=== PATIENT | female | born 1935 | race Caucasian/White ===

== ENCOUNTER 2023-09-24 11:17 | Outpatient (CLI) | payer MEDICARE, SELFPAY ==
--- NOTE | ~2023-09-24 | XR_ITS ---
XR knee LT min 4V DATE: 09/24/2023 11:55 INDICATION: Fall. Medial knee pain. TECHNIQUE: Dows and standing AP, PA and lateral views COMPARISON: None FINDINGS: Mild suprapatellar knee joint effusion. Very thin approximately 7 mm long linear calcification or ossification is noted at the superior pole of the patella along the axis of the quadriceps tendon. This may be tendon calcification or small cor tical avulsion fracture at the superior pole of the patella. Minimal periarticular spurring of the patella. Osteopenia. Chondrocalcinosis of the medial and lateral compartments. Mild loss of height of medial compartment j oint space. No radiopaque intra-articular loose body is evident. No fracture, dislocation, periosteal reaction or bone destruction is detected. IMPRESSION: Small suprapatellar knee joint effusion 7 mm thin linear calcification at the distal quadriceps tendon or small superior pole patellar cortic al avulsion fracture Osteopenia Chondrocalcinosis Reviewed, dictated and finalized at location B. IMPRESSION: Small suprapatellar knee joint effusion 7 mm thin linear calcification at the distal quadriceps tendon or small superio r pole patellar cortical avulsion fracture Osteopenia Chondrocalcinosis
== END 2023-09-24 11:18 ==
PROVIDERS: PCP Orthopaedic Surgery; Visit Provider Orthopaedic Surgery
DX: M25.462 Effusion, left knee (principal); M85.89 Other specified disorders of bone density and structure, multiple sites; M11.262 Other chondrocalcinosis, left knee; M25.862 Other specified joint disorders, left knee
CPT/HCPCS: 73564

== ENCOUNTER 2023-10-22 10:38 | Outpatient (CLI) | payer MEDICARE, SELFPAY ==
--- NOTE | 2023-10-22 10:49 | ECG_ITS ---
Test Date: 2023-10-22 11:08:41 Measurements Intervals [place] Rate: 58 P: -37 MT: 170 QRS: -20 QRSD: 97 T: 1 QT: 413 QTc: 407 Interpretive Statements SINUS BRADYCARDIA WARNING: DATA QUALITY MAY AFFECT INTERPRETATION ABNORMAL ECG Electronically Signed On 10-22-2023 15:15:54 CDT by Juan Bell M.D.
== END 2023-10-22 10:39 | disposition home or self-care (01) ==
PROVIDERS: PCP Family Medicine; Visit Provider Orthopaedic Surgery
DX: Z01.818 Encounter for other preprocedural examination (principal); I10 Essential (primary) hypertension; R94.31 Abnormal electrocardiogram [ECG] [EKG]
CPT/HCPCS: 93005

== ENCOUNTER 2023-10-27 00:40 | Day surgery (SDC) | payer MEDICARE, SELFPAY ==
--- NOTE | 2023-10-16 13:30 | PC.NURSE ---
Report to the Outpatient Waiting Room, entrance under the green pavilion located off [facility], at time _1:00 PM on date _10/27/23 . Planned Procedure Time: _3:00PM . Time changes happen often and if your time is changed the preop area will call you the afternoon before. - You and your visitor will be asked to self-screen and do not enter if you have any COVID symptoms. - A mask is optional within the hospital at this time. Patients may have clear liquids (water, carbonated beverages, clear teas, apple juice) until 3 hours prior to surgery ( 12 NOON) with a maximum of 20 ounces. - No food from midnight until time of surgery - Infants may have breast milk until 4 hours before surgery, infant formula 6 hours prior to surgery. - Children will be allowed to drink immediately following surgery. If applicable, please bring a bottle or sippy cup to assist with drinking. Juice, water, soda, and popsicles are readily available. For infants on formula, please bring formula the day of surgery. Pacifiers are allowed. Take the following medications with a SIP of water the morning of surgery: _AMLODIPINE,DULOXETINE,PREGABALIN DO NOT STOP ANY OF YOUR OTHER PRESCRIPTION MEDICATIONS PRIOR TO SURGERY ?EXCEPT THE FOLLOWING Medications to discontinue per physician ___ALL VITAMINS AND SUPPLEMENTS 3 DAYS PRE OP 10/23/23. HOLD MELOXICAM 7 DAYS PRE OP PER DR OSBORN.LAST DOSE 10/19/23 MAY TAKE TYLENOL IF NEEDED FOR PAIN Please no make-up, nail georgian, hairspray, perfume, deodorant, or body powder the day of surgery. No jewelry (including any body piercings) or valuables the day of surgery, leave them at home. Please take a shower or bath the night before, or the morning of, surgery with an antibacterial soap. Wear comfortable, loose fitting clothing. Children are encouraged to wear pajamas. - Jewelry must be removed prior to entering the operating room. Rings and piercings that are not removed may be cut off. - The hospital will not accept responsibility for valuables. - Please leave all valuables, including medications, at home the day of surgery. If you are going home after surgery, a licensed local intermodal truck driver must drive you home. - NO public transportation without another adult if you receive anesthesia. - We recommend that an adult stay with you for 24 hours following discharge. - We also recommend that you do not drive, make important decision, drink alcoholic beverages, or take any drugs that were not prescribed by your health care provider for at least 24 hours after your discharge time. Follow any additional instructions given to you from your surgeon. If you or anyone in your household have experienced Covid symptoms in the past week, please notify your surgeon or the nurse liaison at the phone number below for possible testing. Telephone instructions given to ___PATIENT and asked if any additional questions and then verbalized understanding. Patient advised to call surgeon office or pre surgery nurse liaison [phone] if any additional questions.
[2023-10-16 13:45] VITALS: BMI 26.1
[2023-10-27] VITALS (8 sets, daily range): BP systolic 108–131; BP diastolic 54–69; PULSE 67–78; RESP 12–18; TEMP 36.2–36.7; O2SAT 97–100
--- NOTE | 2023-10-27 08:56 | WPDHPUPDATE1 ---
History and Physical Update Update Date/Time: 10/27/23 08:56 History and Physical has been reviewed, including an updated exam of the patient. There are NO changes in the patient's condition. Risks, benefits, and alternatives have been discussed and questions answered. Patient agrees to proceed with procedure.
[2023-10-27] MEDS: KETOROLAC 15 MG/ML VIAL (*BKC) IV PUSH (13:23)
[2023-10-27] MEDS: ACETAMINOPHEN 500 MG TABLET 1000 MG PO (13:23)
--- NOTE | 2023-10-27 13:52 | WPDANESEPPF ---
Anes - Initial Pre Proc Eval Procedure: Operation Date: 10/27/23 15:00 Proposed Procedures p Left Knee Arthroscopy, Partial Medial and Lateral Meniscectomy - Maco Adames MD Date/Time: 10/27/23 13:52 Surgeon: Maco Adames MD Pre Op Diagnosis: left knee medial & lateral meniscus tear Patient Data Age: 88 Gender: F Height: 1.68 m Weight: 70.3 kg Last Vital Signs Temp 36.7 C 10/27/23 13:36 Pulse 67 10/27/23 13:36 Resp 16 10/27/23 13:36 BP 127/63 10/27/23 13:36 Pulse Ox 100 10/27/23 13:36 O2 Del Method Room Air 10/27/23 13:36 Allergies Allergy/AdvReac Type Severity Reaction Status Date / Time fesoterodine [From Toviaz] AdvReac Intermediate Blurry Verified 10/27/23 13:07 Vision sulfamethoxazole AdvReac Intermediate Nausea Verified 10/27/23 13:07 [From Bactrim] trimethoprim [From Bactrim] AdvReac Intermediate Nausea Verified 10/27/23 13:07 Home Medications Medication Instructions Recorded Confirmed Type amlodipine 5 mg tablet 5 mg PO DAILY 09/13/19 10/27/23 History calcium carb-vit U0-vfddolnnh-upvg 1 tablet PO DAILY 09/13/19 10/27/23 History 333 mg-200 unit-133 mg-5 mg tablet lisinopril 20 mg tablet 20 mg PO DAILY 09/13/19 10/27/23 History pantoprazole 40 mg tablet,delayed 40 mg PO PRN PRN Heartburn 09/13/19 10/27/23 History release acetaminophen 650 mg 650 mg PO Q8H 08/19/23 10/27/23 History tablet,extended release (Tylenol Arthritis Pain) alendronate 70 mg tablet 70 mg PO WEEKLY 08/19/23 10/27/23 History duloxetine 20 mg capsule,delayed 20 mg PO BID 08/19/23 10/27/23 History release meloxicam 7.5 mg tablet 7.5 mg PO DAILY 08/19/23 10/27/23 History pregabalin 150 mg capsule 150 mg PO BID 08/19/23 10/27/23 History ipratropium bromide 21 mcg (0.03 2 spray intranasal BID 08/29/23 10/27/23 History %) nasal spray cholecalciferol (vitamin D3) 50 50 mcg PO DAILY 10/16/23 10/27/23 History mcg (2,000 unit) tablet uhimjgud-ttzd-tcdb 8 mg-folic 400 1 tablet PO DAILY 10/16/23 10/27/23 History mcg-K 50 mcg-lutein 300 mcg tablet (Centrum Silver Women) hydrocodone 5 mg-acetaminophen 325 1 - 2 tablet PO Q4-6H PRN pain #30 10/27/23 Rx mg tablet tabs Patient hx anesthesia problems: none Family hx anesthesia problems: none Results Review: All pre-operative results and documents have been reviewed as part of the pre-operative evaluation. [facility] Past Medical History Medical History Acute idiopathic gout of right ankle Back complaints Cardiac murmur Chronic cough Current mild episode of major depressive disorder Diminished hearing Essential (primary) hypertension GERD (gastroesophageal reflux disease) Goiter, nontoxic, multinodular Hip bursitis Neoplasm of uncertain behavior of skin Neuropathy Osteoporosis Overactive bladder Postmenopausal Prediabetes Seborrheic keratosis Spinal stenosis Spinal stenosis of lumbar region with neurogenic claudication Trochanteric bursitis, left hip Vitamin D deficiency Family History Family History Sibling Cerebrovascular accident Mother Family history of kidney disease Family history of heart disease in male family member before age 55 Other Diabetes mellitus Hypertension Social History Social History Smoking status: Never smoker Alcohol intake: current Do You Feel Safe in your Home?: Yes Lack of Transportation: No Lack of Food: Never True Current Housing: I Have Housing Concerned About Future Housing: No Difficulty Paying Gas/Electric Bills: No Difficulty Paying for Meds: No Currently Unemployed: No Education: Decline to Answer Difficulty w/ Childcare or Family Care: No Living arrangements: with family Spiritual care concerns: No Anes - Eval Final PreProcedure Day of Procedure
[2023-10-27] MEDS: ceFAZolin 2 GM/D5W 50 ML 2 GM/50 ML BAG IVPB (13:58)
[2023-10-27] MEDS: BUPIVACAINE/EPINEPHRINE 0.5% 10 ML VIAL 20 ML INFILTRATE (14:14)
[2023-10-27] MEDS: LACTATED RINGERS 1,000 ML 30 ML IV CONT (14:50)
--- NOTE | 2023-10-27 15:09 | W.PM.PROC2 ---
Procedure Note - Detailed Date of Procedure 10/27/23 Pre-op Diagnosis Left knee medial & lateral meniscus tear Post-op Diagnosis Same Procedure Performed Arthroscopic partial medial and lateral meniscectomies, left knee. Surgeon Maco Adames MD Anesthesia General Findings Extensive tearing of the posterior horn medial meniscus. Subtotal meniscectomy. Woyn-ph-tijhcetw chondromalacia diffusely in the medial compartment. Mild at the patella. Lateral compartment with moderate tearing of the posterior and anterior horn. Good remaining meniscus. Articular cartilage largely normal in the lateral compartment. Overall the knee was in good condition given the patient age and the extent of the meniscus tear. Description of Procedure The patient was identified and the surgical site confirmed and signed in the preoperative holding area. Antibiotics were started per protocol, and the patient was brought to the operative room and transferred to the OR table. A general anesthetic was administered. Supine position with the operative lower extremity position in the leg miller after placement of a well padded tourniquet. The leg support was lowered and the contralateral limb was supported with a soft bolster. The knee was prepped and draped in the usual sterile fashion. A time-out was performed. The portal sites were marked and infiltrated with 0.5% Marcaine 20 mL. The limb was exsanguinated and the tourniquet inflated to 300 mL Hg. Standard inferolateral and inferomedial portals were established. Inflow was obtained with the saline pump. The camera was introduced. Diagnostic inspection of the joint was accomplished. The menisci were debrided with the arthroscopic shaver and punches until stable. The arthroscopic instruments were removed. The tourniquet released and wounds closed with subcutaneous 4-0 Monocryl absorbable suture. Steri strips and a sterile dressing were applied. A light elastic wrap was placed. The patient was extubated and brought to the recovery room in stable condition. Estimated Blood Loss 5 Tourniquet Time Total Tourniquet Time: 12 Drains No Complications No immediate complications Condition Stable Disposition PACU [facility] Billing Surgery - Charge Forward: Surgery Billing
[2023-10-27] MEDS: oxyCODONE HCL (*CRX) 5 MG TAB IR PO (15:44)
== END 2023-10-27 16:27 | disposition home or self-care (01) ==
PROVIDERS: PCP Family Medicine; Visit Provider Orthopaedic Surgery
PROC: (CPT 29870; principal; 2023-10-27 15:00)
DX: S83.242A Other tear of medial meniscus, current injury, left knee, initial encounter (principal); S83.282A Other tear of lateral meniscus, current injury, left knee, initial encounter; W10.9XXA Fall (on) (from) unspecified stairs and steps, initial encounter; I10 Essential (primary) hypertension; K21.9 Gastro-esophageal reflux disease without esophagitis; M81.0 Age-related osteoporosis without current pathological fracture; E55.9 Vitamin D deficiency, unspecified; F32.0 Major depressive disorder, single episode, mild
CPT/HCPCS: 29880; A9270; J0690; J1885; J2250; J2405; J2704; J3010; J7120

== ENCOUNTER 2024-04-14 10:42 | Outpatient (CLI) | payer MEDICARE, OTHER, SELFPAY ==
[2024-04-14 11:17] LABS: Hematocrit 39.4 % (37.0-47.0); Hemoglobin 12.4 g/dL (12.0-15.0)
[2024-04-14 12:01] LABS: Albumin Level 4.2 g/dL (3.5-5.1); Estimated Glomerular Filt Rate > 60; Glucose 98 mg/dL (65-110)
[2024-04-14 12:21] LABS: Hemoglobin A1C 5.5 % (<5.7)
== END 2024-04-14 10:43 | disposition home or self-care (01) ==
PROVIDERS: PCP Family Medicine; Visit Provider Orthopaedic Surgery
DX: E55.9 Vitamin D deficiency, unspecified (principal); R73.03 Prediabetes; L82.1 Other seborrheic keratosis
CPT/HCPCS: 36415; 82040; 82565; 82947; 83036; 85014; 85018

== ENCOUNTER 2024-06-02 09:46 | Outpatient (CLI) | payer MEDICARE, OTHER, SELFPAY ==
--- OUTSIDE RECORDS SUMMARY | 2024-06-02 02:01 | XMS_ITS | Clinical Summary ---
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
--- OUTSIDE RECORDS SUMMARY | 2024-06-02 02:01 | XMS_ITS | Encounter Summary ---
Author Organization [facility] [employer] Address 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
--- OUTSIDE RECORDS SUMMARY | 2024-06-02 02:01 | XMS_ITS ---
Author Organization [facility] Address [address] [place] [phone] Care Team Providers Care Improvement Coordinator Name Role Phone Mónica Coburn Primary Care Provider [phone] REASON FOR VISIT REfill-Controlled Medications Medication SIG (Take, Route, Fr equency, Duration) Notes Start Date End Date Status Pregabalin 150 MG 1 Oral at bed time; Duration: 90 days 05/17/2024 11/13/2024 Active Encounters Encounter Location Date Provider Diagnosis [address] [phone] 05/17/2024 Mónica Coburn Polyneuropathy, unspecified G62.9 Assessments Encounter Date Diagnosis (ICD Code) Assessment Notes Treat ment Notes Treatment Clinical Notes 05/17/2024 Polyneuropathy, unspecified (ICD-10 - G62.9) Plan Of Treatment Medication Medication Name Sig Start Date Stop Date Notes Pregabalin 150 MG 1 Oral at bed time; Duration: 90 days 11/13/2024 Next Appt Details Provider Name:Ingrid gurrola, 06/22/2024 10:15:00 AM, [address] [place] [address], [phone], [phone] Provider Name:Mónica Coburn , 09/16/2024 01:30:00 PM, [address] [place] [address], [phone], [phone] Progress Notes * Elizabeth VIEIRAOB:1935 (88 yo F)Acc No.[id number]:05/17/2024 Patient:?Leanna VIEIRA :1935???Age:88 Y???Sex:Female Phone: Address:[address] [place] [address], [place], [address] * Refills? Refill Pregabalin Capsule, 150 MG, Oral, 90 Capsule, 1, at bed time, 90 days, Refills=1 Subjective: * Chief Complaints: * ???REfill-Controlled * Medical History:? * Surgical History:? * Hospitalization/Major Diagno stic Procedure:? * Medications:? Objective: * Physical Examination:? Assessment: * Assessment: 1.?Polyneuropathy, unspecifi ed - G62.9??? Plan: * Treatment: * Procedure Codes:? Billing Information: * Visit Code:? * Procedure Codes:? * true * Date:? 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
--- OUTSIDE RECORDS SUMMARY | 2024-06-02 02:02 | XMS_ITS ---
Author Organization [facility] Address [address] [place] [address] Care Team Providers Care Medical Laboratory Assistant Name Role Phone Mónica Coburn Primary Care Provider [phone] REASON FOR VISIT Cryo on right ear x 2 Medications Medication SIG (Take, Route, Frequency, Duration) Notes Start Date End Date Status amLODIPine Besylate 5 MG 1 Oral every day; Duration: 02/06/2024 08/03/2024 Unknown Alendronate Sodium 70 MG 1 Oral once a week; Duration: 90 06/16/2023 06/09/2024 Unknown Tylenol 8 Hour Arthritis Pain 650 MG 2 Oral three times a day; Duration: 0 09/03/2022 Unknown Pregabalin 150 MG 1 Oral at bed time; Duration: 90 02/17/2024 05/16/2024 Active Mupirocin 2 % External two times a day; Duration: 0 03/17/2024 Unknown Diclofenac Sodium 50 MG 1 tablet as needed Orally Twice a day; Duration: 30 days As needed. STOP taking 7 days prior to upcoming procedure. 05/12/2024 Active Centrum Silver oral; Duration: 0 *Pick strength-form from [employer] for eRX* 10/27/2020 Unknown Vitamin D2 oral; Duration: 0 *Pick strength-form from [employer] for eRX* 12/24/2023 Unknown Metamucil oral; Duration: 0 *Pick strength-form from [employer] for eRX* 10/27/2020 Not-Taking DULoxetine HCl 20 MG 1 Oral every night at bedtime; Duration: 90 02/16/2024 08/13/2024 Active Lisinopril 20 MG 1/2 Oral every day; Duration: 90 days 12/19/2023 06/15/2024 Active Multivitamin oral; Duration: 0 *Pick strength-form from [facility] for eRX* 06/16/2023 Active busPIRone HCl 10 MG 0.5-1 Oral every 6-8 hours; Duration: 0 ,PRN Reason:for anxiety 10/20/2023 Not-Taking Vital Signs Temperature 97.0 degrees Fahrenheit 05/12/19 25 Blood pressure systolic 124 mm Hg 05/12/19 25 Blood pressure diastolic 68 mm Hg 025 Heart Rate 78 /min 05/12/2024 Height 64.00 in 05/12/2024 Weight 166 lbs 05/12/2024 BMI 28.49 kg/m2 05/12/2024 Oximetry 97 % 05/12/2024 Height-cm 162.56 cm 05/12/2024 Weight-kg 75.3 kg 05/12/2024 Encounters Encounter Location Date Provider Diagnosis [address] [address] 05/12/2024 [facility] 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 Do not break any blisters that may form as this will reduce infection risk. If blisters do break, apply topical antibiotic ointment until healed. Call the office with any questions or concerns. Right Ear Skin Spot - Possible precancerous skin spot on the right ear. - Perform cryotherapy (freezing) on the skin spot. Expect blistering and shedding of the spot within 5 to 7 days, followed by new skin growth. Knee Pain - Chronic knee pain, patient is worried about potential surgery. - Prescribe diclofenac (voltaren) for pain management as needed, with a 12-hour duration. Provide a printed medication list for patient review and confirmation. - Discussed the safety of diclofenac compared to regular ibuprofen, emphasizing its better tolerance on the stomach. - Advised the patient to use diclofenac on tough days when pain is more severe. Arthritis Pain - Chronic arthritis pain. - Continue taking duloxetine daily for arthritis pain management. - Emphasized the importance of daily intake for duloxetine to maintain its effectiveness for arthritis pain, anxiety, and depression. Blood Pressure Management - Blood pressure is well-controlled with current medication regimen. - Continue current blood pressure medications, lisinopril reduced to 10 mg as previously adjusted. - Reassured the patient about the effectiveness of the current blood pressure management plan, as evidenced by the stable reading of 124/68 mmHg. Plan Of Treatment Medication Medication Name Sig Start Date Stop Date Notes Diclofenac Sodium 50 MG 1 tablet as need ed Orally Twice a day; Duration: 30 days 05/12/2024 Treatment Notes Assessment Notes Other Cryotherapy instructions Patient was informed that some mild stinging is normal for 1-2 days. Do not break any blisters that may form as this will reduce infection risk. If blisters do break, apply topical antibiotic ointment until healed. Call the office with any questions or concerns. Right Ear Skin Spot - Possible precancerous skin spot on the right ear. - Perform cryotherapy (freezing) on the skin spot. Expect blistering and shedding of the spot within 5 to 7 days, followed by new skin growth. Knee Pain - Chronic knee pain, patient is worried about potential surgery. - Prescribe diclofenac (voltaren) for pain management as needed, with a 12-hour duration. Provide a printed medication list for patient review and confirmation. - Discussed the safety of diclofenac compared to regular ibuprofen, emphasizing its better tolerance on the stomach. - Advised the patient to use diclofenac on tough days when pain is more severe. Arthritis Pain - Chronic arthritis pain. - Continue taking duloxetine daily for arthritis pain management. - Emphasized the importance of daily intake for duloxetine to maintain its effectiveness for arthritis pain, anxiety, and depression. Blood Pressure Management - Blood pressure is well-controlled with current medication regimen. - Continue current blood pressure medications, lisinopril reduced to 10 mg as previously adjusted. - Reassured the patient about the effectiveness of the current blood pressure management plan, as evidenced by the stable reading of 124/68 mmHg. Next Appt Details Provider Name:Ingrid gurrola 06/22/2024 10:15:00 AM, [address] [facility], [place], [address], [phone] Provider Name:Mónica Coburn , 09/16/2024 01:30:00 PM, [address], [place], [address], [phone] History and Physical Notes * Examination Category Sub-Category Detail Notes General Examination General appearance: alert, p leasant, well-nourished and in no acute distress Ears: right ear externally with 3 mm scaly skin lesion, base with redness. Heart: regular rate and rhy thm without murmurs, gallops, clicks or rubs, S1 and S2 are normal and no S3 and S4 gallop Lungs: clear to auscultatio n bilaterally, with good air movement and no rales, rhonchi or wheezes Psych: alert and oriented x 3, cognitive function intact, maintains good eye contact, normal affect / mood, speech is clear and coherent Progress Notes * BABATUNDEHARDYElizabethOB:1935 (88 yo F)Acc No.[id number]:05/12/2024 Progress Note Patient:?Leanna Barnard Provider:?Mónica Coburn MD :[id number]???Age:88 Y???Sex:Female D ate:05/12/2024 Phone: Address:[address] [place], [place] [phone] Subjective: * Chief Complaints: * ???Cryo on right ear x 2 * HPI: ???HPI:?Patient is here for cryo of the right ear. Chief complaint Cryotherapy for a skin spot on the right ear and management of knee pain. - Undergoing cryotherapy for a skin spot on the right ear, possibly precancerous vs chondrodermatitis - Expressed concern and anxiety about upcoming knee surgery - Has experienced knee pain for a year, impacting daily activities and mood - Described feeling crabby and having a bad day due to pain and worry about surgery -Chronic joint pain, feels she needs something for pain. No longer taking meloxicam she was given from ortho some time ago. * Medications:?TakingPregabali n 150 MG Capsule 1 Oral at bed time , stop date 05/16/2024DULoxetine HCl 20 MG Capsule Delayed Release Particles 1 Oral every night at bedtime , stop date 08/13/2024Multivitamin oral , Notes to Pharmacist: *Pick strength-form from [facility] for eRX*Lisinopril 20 MG Tablet 1/2 Oral every day , stop date 06/15/2024Taking Pregabalin 150 MG Capsule 1 Oral at bed time , stop date 05/16/2024Taking DULoxetine HCl 20 MG Capsule Delayed Release Particles 1 Oral every night at bedtime , stop date 08/13/2024Taking Multivitamin oral , Notes to Pharmacist: *Pick strength-form from [facility] for eRX*Taking Lisinopril 20 MG Tablet 1/2 Oral every day , stop date 06/15/2024Not-TakingbusPIRone HCl 10 MG Tablet 0.5-1 Oral every 6-8 hours , Notes to Pharmacist: ,PRN Reason:for anxietyMetamucil oral , Notes to Pharmacist: *Pick strength-form from [facility] for eRX*Not-Taking busPIRone HCl 10 MG Tablet 0.5-1 Oral every 6-8 hours , Notes to Pharmacist: ,PRN Reason:for anxietyNot-Taking Metamucil oral , Notes to Pharmacist: *Pick strength-form from [facility] for eRX*DiscontinuedMeloxicam 7.5 MG Tablet 1 Oral every day Discontinued Meloxicam 7.5 MG Tablet 1 Oral every day UnknownVitamin D2 oral , Notes to Pharmacist: *Pick strength-form from [facility] for eRX*Centrum Silver oral , Notes to Pharmacist: *Pick strength-form from [facility] for eRX*Alendronate Sodium 70 MG Tablet 1 Oral once a week , stop date 06/09/2024mLODIPine Besylate 5 MG Tablet 1 Oral every day , stop date 08/03/2024Mupirocin 2 % Ointment External two times a day Tylenol 8 Hour Arthritis Pain 650 MG Tablet Extended Release 2 Oral three times a day Unknown Vitamin D2 oral , Notes to Pharmacist: *Pick strength-form from [facility] for eRX*Unknown Centrum Silver oral , Notes to Pharmacist: *Pick strength-form from [facility] for eRX*Unknown Alendronate Sodium 70 MG Tablet 1 Oral once a week , stop date 06/09/2024Unknown amLODIPine Besylate 5 MG Tablet 1 Oral every day , stop date 08/03/2024Unknown Mupirocin 2 % Ointment External two times a day Unknown Tylenol 8 Hour Arthritis Pain 650 MG Tablet Extended Release 2 Oral three times a day Objective: * Vitals:?BP:124/68mm Hg, HR:7 8/min, Temp:97.0F, Oxygen sat %:97%, Ht: 64.00 in, Wt:166lbs, Wt-k.3 kg, Ht-cm: 162.56 cm, BMI: 28.49 Index, Body Surface Area: 1.84. * Examination: ???General Examination: ?General appearance:?alert, pleasant, well-nourished and in no acute distress.?Ears:?right ear externally with 3 mm scaly skin lesion, base with redness..?Heart:?regular rate and rhythm without murmurs, gallops, clicks or rubs, S1 and S2 are normal and no S3 and S4 gallop.?Lungs:?clear to auscultation bilaterally, with good air movement and no rales, rhonchi or wheezes.?Psych:?alert and oriented x 3, cognitive function intact, maintains good eye contact, normal affect / mood, speech is clear and coherent.? 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 Plan: * Treatment: * Procedures:?Informed Consent was obtained before the procedure started Lesion type: Other Location of : right external ear Number of lesions: 1 The lesions were destroyed using cryotherapy with [employer]. 10 seconds Freeze and Thaw cycle performed. 3 rounds performed to each lesion. Anticipatory guidance was provided. Return precautions were given. Standard post procedure care was explained. The patient tolerated the procedure well without any complications. ? * Procedure Codes:?76335 DESTR UCT B9 LESION 1-14 Billing Information: * Visit Code:? 26708 OFFICE VISIT LOW. Modifiers: 25 * Procedure Codes:? 51824 DESTRUCT B9 LESION 1-14. * REHABILITATION Sign off status: Completed true * Provider:?Mónica Coburn MD Date:?05/12 Generated for Delvis dawn/Taylor/Claritza on:?06/02/2024 02:02 AM RN REHABILITATION
--- OUTSIDE RECORDS SUMMARY | 2024-06-02 02:02 | XMS_ITS | Encounter Summary ---
Author Organization [facility] Address 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
--- OUTSIDE RECORDS SUMMARY | 2024-06-02 02:02 | XMS_ITS | Encounter Summary ---
Author Organization [facility] Address 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
--- OUTSIDE RECORDS SUMMARY | 2024-06-02 02:02 | XMS_ITS ---
Author Organization [facility] Address [address] [place] [address] Care Team Providers Care Biometrics Technician Name Role Phone Mónica Coburn Primary Care Provider [phone] Allergies Allergen (clinical drug ingredient) Drug/Non Drug Allergy documented on EMR Reaction Allergy Type Onset Date Status sulfamethoxazole / trimethoprim Bactrim nausea Drug Allergy 12/07/2020 Active fesoterodine Toviaz blurry vision Drug Allergy 12/10/2021 Active REASON FOR VISIT preop knee surgery Medications Medication SIG (Take, Route, Frequency, Duration) Notes Start Date End Date Status Mupirocin 2 % External two times a day; Duration: 0 03/17/2024 Unknown amLODIPine Besylate 5 MG 1 Oral every day; Duration: 90 02/06/2024 08/03/2024 Unknown Lisinopril 20 MG 1 Oral every day; Duration: 90 12/19/2023 06/15/2024 Unknown Multivitamin oral; Duration: 0 *Pick strength-form from [employer] for eRX* 06/16/2023 Unknown Tylenol 8 Hour Arthritis Pain 650 MG 2 Oral three times a day; Duration: 0 09/03/2022 Unknown DULoxetine HCl 20 MG 1 Oral every night at bedtime; Duration: 90 02/16/2024 08/13/2024 Unknown Metamucil oral; Duration: 0 *Pick strength-form from [employer] for eRX* 10/27/2020 Not-Taking Alendronate Sodium 70 MG 1 Oral once a week; Duration: 90 06/16/2023 06/09/2024 Unknown Meloxicam 7.5 MG 1 Oral every day; Duration: 0 06/16/2023 Unknown Pregabalin 150 MG 1 Oral at bed time; Duration: 90 02/17/2024 05/16/2024 Unknown busPIRone HCl 10 MG 0.5-1 Oral every 6-8 hours; Duration: 0 ,PRN Reason:for anxiety 10/20/2023 Not-Taking Vitamin D2 oral; Duration: 0 *Pick strength-form from [employer]span for eRX* 12/24/2023 Unknown Centrum Silver oral; Duration: 0 *Pick strength-form from [employer] for eRX* 10/27/2020 Unknown Vital Signs Temperature 97.6 degrees Fahrenheit 04/30/20 24 Blood pressure systolic 118 mm Hg 04/30/20 24 Blood pressure diastolic 68 mm Hg 024 Heart Rate 68 /min 04/30/2024 Height 64.00 in 04/30/2024 Weight 163 lbs 04/30/2024 BMI 27.98 kg/m2 04/30/2024 Oximetry 96 % 04/30/2024 Height-cm 162.56 cm 04/30/2024 Weight-kg 73.94 kg 04/30/2024 Encounters Encounter Location Date Provider Diagnosis [address] [address] 04/30/2024 [facility] 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 ; Actinic keratosis L57.0 ; Prediabetes R73.03 ; Spinal stenosis, 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 ; Essential (primary) hypertension I10 ; Primary osteoarthritis of left knee M17.12 and Encounter for preoperative assessment Z01.818 Assessments Encounter Date Diagnosis (ICD Code) Assessment Notes Treatment Notes Treatment Clinical Notes 04/30/2024 Chondrodermatitis nodularis helicis of right ear (ICD-10 - H61.001) 04/30/2024 Actinic keratosis (ICD-10 - L57.0) 04/30/2024 Prediabetes (ICD-10 - R73.03) 04/30/2024 Spinal stenosis, lumbar region with neurogenic claudication (ICD-10 - M48.062) 04/30/2024 Essential (primary) hypertension (ICD-10 - I10) 04/30/2024 Primary osteoarthrit is of left knee (ICD-10 - M17.12) 04/30/2024 Encounter for preoperative assessment (ICD-10 - Z01.818) 04/30/2024 Other Lisionpril 20mg will be cut down to 10mg due to normalized BP and patient's desire to try and reduce medication. Preoperative testing to be done end of May, 30 days prior to surgery appt. Patient to ask Dr. Adames about PT prior to surgery. RTC for cryo on right ear x 2 lesions Pre-operative Evaluation for Knee Surgery - Pre-operative evaluation required for knee surgery scheduled in two months. No cardiac clearance needed as patient does not see a heart doctor. - Order EKG and blood work to be done within 30 days before surgery. Schedule follow-up appointment in early May for ear freezing procedure and pre-op check. Ensure no open sores before surgery to avoid cancellation. - Follow-up appointment in early May to check the ear lesion and perform the freezing procedure. This is to ensure the lesion is healed before the surgery to avoid any risk of cancellation. Knee Osteoarthritis - Severe osteoarthritis in both knees, with left knee surgery planned. Previous arthroscopy did not provide relief. - Proceed with left knee surgery. Discuss with surgeon about potential pre-surgery exercises to strengthen the leg. Post-surgery therapy critical for recovery. - Risks and side effects: Discussed long recovery and importance of therapy to avoid stiff knee. Blood Pressure Management - Blood pressure well-controlled on current lisinopril dose. - Reduce lisinopril from 20 mg to 10 mg daily. Monitor blood pressure to ensure it remains under 130/80. Patient to report any symptoms of low blood pressure such as lightheadedness or dizziness. Ear Lesion - Likely chondrodermatitis or precancerous lesion on ear. - Schedule ear freezing procedure in early May. Continue using prescribed creams until procedure. Monitor the lesion to ensure it does not cause any issues before surgery. Nerve Pain Management - Nerve pain managed with current pregabalin dose. - Continue current pregabalin regimen. Patient reports significant nerve pain if nighttime dose is missed. Prescription - lisinopril 20 mg, reduce to half tab daily to equal 10 mg dose. Appointments - Appointment in early May for ear freezing procedure. Plan Of Treatment Treatment Notes Assessment Notes Other Lisionpril 20mg will be cut down to 10mg due to normalized BP and patient's desire to try and reduce medication. Preoperative testing to be done end of May, 30 days prior to surgery appt. Patient to ask Dr. Adames about PT prior to surgery. RTC for cryo on right ear x 2 lesions Pre-operative Evaluation for Knee Surgery - Pre-operative evaluation required for knee surgery scheduled in two months. No cardiac clearance needed as patient does not see a heart doctor. - Order EKG and blood work to be done within 30 days before surgery. Schedule follow-up appointment in early May for ear freezing procedure and pre-op check. Ensure no open sores before surgery to avoid cancellation. - Follow-up appointment in early May to check the ear lesion and perform the freezing procedure. This is to ensure the lesion is healed before the surgery to avoid any risk of cancellation. Knee Osteoarthritis - Severe osteoarthritis in both knees, with left knee surgery planned. Previous arthroscopy did not provide relief. - Proceed with left knee surgery. Discuss with surgeon about potential pre-surgery exercises to strengthen the leg. Post-surgery therapy critical for recovery. - Risks and side effects: Discussed long recovery and importance of therapy to avoid stiff knee. Blood Pressure Management - Blood pressure well-controlled on current lisinopril dose. - Reduce lisinopril from 20 mg to 10 mg daily. Monitor blood pressure to ensure it remains under 130/80. Patient to report any symptoms of low blood pressure such as lightheadedness or dizziness. Ear Lesion - Likely chondrodermatitis or precancerous lesion on ear. - Schedule ear freezing procedure in early May. Continue using prescribed creams until procedure. Monitor the lesion to ensure it does not cause any issues before surgery. Nerve Pain Management - Nerve pain managed with current pregabalin dose. - Continue current pregabalin regimen. Patient reports significant nerve pain if nighttime dose is missed. Prescription - lisinopril 20 mg, reduce to half tab daily to equal 10 mg dose. Appointments - Appointment in early May for ear freezing procedure. Next Appt Details Provider Name:Ingrid gurrola, 06/22/2024 10:15:00 AM, [employer], [place], [address], [phone] Provider Name:Mónica Coburn , 09/16/2024 01:30:00 PM, [email or web address], [place], [address], [phone] History and Physical Notes * Examination Category Sub-Category Detail Notes General Examination General appearance: alert, p leasant, well-nourished and in no acute distress Head: normocephalic, atrau matic Eyes: extraocular movement intact (EOMI), pupils equal, round, reactive to light and accommodation Ears: right external ear w ith small shallow ulceration with adjacent AK. Nose: nares patent, no les ions Throat: clear, no erythema, no exudate, pharynx normal Neck / thyroid: neck is supple with no cervical lymphadenopathy, trachea midline Heart: regular rate and rhy thm without murmurs, gallops, clicks or rubs, S1 and S2 are normal and no S3 and S4 gallop Lungs: clear to auscultatio n bilaterally, with good air movement and no rales, rhonchi or wheezes Abdomen: soft with good bowel sounds, nontender, and no masses or hepatosplenomegaly Neurologic: alert and oriented, deep tendon reflexes 2+ symmetrical, gait normal Skin: skin is warm and dry , with no rashes, good skin turgor and normal hair distribution Musculoskeletal: gait slow and unstea dy. Lymph nodes: no cervical lymphade nopathy Psych: alert and oriented x 3, cognitive function intact, maintains good eye contact, normal affect / mood, speech is clear and coherent Oral cavity: normal, mucosa moist , tongue is midline Progress Notes * Herbert VIEIRAGregOB:1935 (88 yo F)Acc No.[id number]:04/30/2024 Patient:?Leanna Vieira Provider:?Mónica Coburn MD :1935???Age:88 Y???Sex:Female D ate:04/30/2024 Phone: Address:[address] [place], [place] [id number] Subjective: * Chief Complaints: * ???Preop knee surgery * HPI: ???Preoperative Evaluation:?Patient is here for preop for upcoming knee surgery Pt explains that she is wanting to know if she should go ahead with her knee surgery. SHe has second thoughts due to her age. Jun 29 is the date of her surgery. Dr. Adames is the ortho performing her upcoming total knee replacement. ???Skin cancer:?Pt explains that she has a spot on her right ear that is non healing. She has had it tx with topical with no results. She believes it to be skin cancer. ???HPI:?Chief complaint Pre-operative evaluation for upcoming knee surgery. History of present illness - Present for pre-operative evaluation for knee surgery - Both knees are in poor condition, with the left knee scheduled for surgery - Previous arthroscopy did not provide relief - Experiences nerve pain if nighttime medication is missed (pregabalin) - Reports hip and ankle pain, possibly related to knee issues - No history of knee replacement surgery - Scheduled for surgery in June - Has a sore on the ear that sometimes causes pain when lying on it. * Medical History:? Vitamin D deficiency, unspecified Major depressive disorder, single episode, mild Anxiety disorder, unspecified Polyneuropathy, unspecified Unspecified hearing loss, unspecified ear Essential (primary) hypertension Gastro-esophageal reflux disease without esophagitis Idiopathic gout, right ankle and foot Spinal stenosis, site unspecified Age-related osteoporosis without current pathological fracture Overactive bladder Cardiac murmur, unspecified Trochanteric bursitis, left hip Prediabetes * Surgical History:? cholecystecomy ? ankle surgery ? back surgery ? Carpal tunnel surgery ,notes : [address] Smith ? Hysterectomy _? Colon Resection 2? Arthroscopy ,notes : Dr Adames - Left knee, partial medial and lateral meniscectomies. 10/27/2023? * Medications:?Not-TakingbusPI Marvin HCl 10 MG Tablet 0.5-1 Oral every 6-8 hours , Notes to Pharmacist: ,PRN Reason:for anxietyMetamucil oral , Notes to Pharmacist: *Pick strength-form from [employer] for eRX*Not-Taking busPIRone HCl 10 MG Tablet 0.5-1 Oral every 6-8 hours , Notes to Pharmacist: ,PRN Reason:for anxietyNot-Taking Metamucil oral , Notes to Pharmacist: *Pick strength-form from [employer] for eRX*UnknownVitamin D2 oral , Notes to Pharmacist: *Pick strength-form from [employer] for eRX*Centrum Silver oral , Notes to Pharmacist: *Pick strength-form from [employer] for eRX*Alendronate Sodium 70 MG Tablet 1 Oral once a week , stop date 06/09/2024Pregabalin 150 MG Capsule 1 Oral at bed time , stop date 05/16/2024Meloxicam 7.5 MG Tablet 1 Oral every day DULoxetine HCl 20 MG Capsule Delayed Release Particles 1 Oral every night at bedtime , stop date 08/13/2024Multivitamin oral , Notes to Pharmacist: *Pick strength-form from [facility] for eRX*Lisinopril 20 MG Tablet 1 Oral every day , stop date 06/15/2024mLODIPine Besylate 5 MG Tablet 1 Oral every day , stop date 08/03/2024Mupirocin 2 % Ointment External two times a day Tylenol 8 Hour Arthritis Pain 650 MG Tablet Extended Release 2 Oral three times a day Medication List reviewed and reconciled with the patientUnknown Vitamin D2 oral , Notes to Pharmacist: *Pick strength-form from [facility] for eRX*Unknown Centrum Silver oral , Notes to Pharmacist: *Pick strength-form from [facility] for eRX*Unknown Alendronate Sodium 70 MG Tablet 1 Oral once a week , stop date 06/09/2024Unknown Pregabalin 150 MG Capsule 1 Oral at bed time , stop date 05/16/2024Unknown Meloxicam 7.5 MG Tablet 1 Oral every day Unknown DULoxetine HCl 20 MG Capsule Delayed Release Particles 1 Oral every night at bedtime , stop date 08/13/2024Unknown Multivitamin oral , Notes to Pharmacist: *Pick strength-form from [facility] for eRX*Unknown Lisinopril 20 MG Tablet 1 Oral every day , stop date 06/15/2024Unknown amLODIPine Besylate 5 MG Tablet 1 Oral every day , stop date 08/03/2024Unknown Mupirocin 2 % Ointment External two times a day Unknown Tylenol 8 Hour Arthritis Pain 650 MG Tablet Extended Release 2 Oral three times a day Medication List reviewed and reconciled with the patient * Allergies:?Bactrim: nausea - Allergy - Onset Date 12/07/2020Toviaz: blurry vision - Allergy - Onset Date 12/10/2021 Objective: * Vitals:?BP:118/68mm Hg, HR:6 8/min, Temp:97.6F, Oxygen sat %:96%, Ht: 64.00 in, Wt:163lbs, Wt-k.94 kg, Ht-cm: 162.56 cm, BMI: 27.98 Index, Body Surface Area: 1.83. * Examination: ???General Examination: ?General appearance:?alert, pleasant, well-nourished and in no acute distress.?Head:?normocephalic, atraumatic.?Eyes:?extraocular movement intact (EOMI), pupils equal, round, reactive to light and accommodation.?Ears:?right external ear with small shallow ulceration with adjacent AK..?Nose:?nares patent, no lesions.?Oral cavity:?normal, mucosa moist, tongue is midline.?Throat:?clear, no erythema, no exudate, pharynx normal.?Neck / thyroid:?neck is supple with no cervical lymphadenopathy, trachea midline.?Lymph nodes:?no cervical lymphadenopathy.?Skin:?skin is warm and dry, with no rashes, good skin turgor and normal hair distribution.?Heart:?regular rate and rhythm without murmurs, gallops, clicks or rubs, S1 and S2 are normal and no S3 and S4 gallop.?Lungs:?clear to auscultation bilaterally, with good air movement and no rales, rhonchi or wheezes.?Abdomen:?soft with good bowel sounds, nontender, and no masses or hepatosplenomegaly.?Musculoskeletal:?gait slow and unsteady..?Neurologic:?alert and oriented, deep tendon reflexes 2+ symmetrical, gait normal.?Psych:?alert and oriented x 3, cognitive function intact, maintains good eye contact, normal affect / mood, speech is clear and coherent.? 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 Plan: * Treatment: * Procedure Codes:?G2211 G 221 1 Complexity Add-On Billing Information: * Visit Code:? 38810 OFFICE VISIT MODERATE. * Procedure Codes:? G2211 G 2211 Complexity Add-On. * RVISOR [employer]X Sign off status: Completed true * Provider:?Mónica Coburn MD Date:?04/30 Generated for Delvis dawn/Taylor/Andreinasmitting on:?06/02/2024 02:02 AM SUPERVISOR MATRIX
--- OUTSIDE RECORDS SUMMARY | 2024-06-02 02:02 | XMS_ITS | Clinical Summary ---
Author Organization [facility] Address [facility] [facility] [place], [place] [address] [place] [address] Care Team Providers Care Checker Cashier Name Role Phone Mónica Coburn MD Primary Care Provider Allergies No known active allergies Medications Calcium Carb-Cholecalcifero l (CALCIUM CARBONATE-VITAMIN D) 600-200 MG-UNIT tablet Take 1 tablet by mouth daily. Active Multiple Vitamins-Minerals (CENTRUM SILVER ADULT 50+) Tab Take 1 tablet by mouth daily. Active magnesium hydroxide (MILK OF MAGNESIA) 400 MG/5ML suspension Active PANTOPRAZOLE EC 40 MG tabletIndications:G ERD without esophagitis TAKE 1 TABLET (40 MG) BY ORAL ROUTE ONCE DAILY FOR 90 DAYS 90 tablet 3 9 Active gabapentin 300 MG capsuleIndications: Foot pain, bilateral One q hs 90 capsule 1 9 Active LISINOPRIL 20 MG tabletIndications:E ssential hypertension TAKE 1 TABLET BY MOUTH DAILY 90 tablet 0 Active AMLODIPINE 5 MG tabletIndications:E ssential hypertension TAKE 1 TABLET BY MOUTH DAILY 90 tablet 0 Active ondansetron 4 MG disintegrating tablet Take 1 tablet (4 mg total) by mouth every 8 (eight) hours as needed for Nausea. 20 tablet 2 Active Active Problems Problem Noted Date Diagnosed Date Carpal tunnel syndrome 10/30/2016 Overview (07/07/2018): Date Onset: 10/30/2016 History of gastric ulcer 10/30/2016 Overview (08/26/2018): Date Onset: 10/30/2016 Gastric ulcer 06/13/2016 Gastrointestinal bleed 06/13/2016 Overview (08/26/2018): Note: SECONDARY TO ACUTE GASTRIC ULCER Date Onset: 05/24/16 Sensorineural hearing loss 02/10/2014 Overview (07/07/2018): Date Onset: 02/10/2014 Other penitentiary (current) drug therapy 4 Overview (08/26/2018): Date Onset: 02/10/2014 Osteoarthrosis 10/25/2013 Overview (08/26/2018): Date Onset: 10/25/2013 Hyperglycemia 10/20/2013 Overview (07/07/2018): Date Onset: 10/20/2013 Benign neoplasm of skin 06/24/2013 Overview (08/26/2018): Date Onset: 06/24/2013 Neoplasm of uncertain behavior of skin 4 Overview (08/26/2018): Date Onset: 06/10/2013 Trigeminal neuralgia 05/06/2013 Overview (07/07/2018): Date Onset: 05/06/2013 Diverticulitis of colon 10/10/2011 Gastro-esophageal reflux disease without esophag itis 10/10/2011 Constipation 10/10/2011 Immunizations Name Administration Dates Next Due Fluzone High Dose - >Age 65 (Prefilled Syringe) 02/22/2019 Influenza (Generic) 02/25/2018, 6,03/02/2015, 014,02/04/2012,03/11/2011 Tdap (Historical Only-select from magnify glass) 11/26/2018 Social History Tobacco Use Types Packs/Day Years Used Date Smoking Tobacco: Never Smokeless Tobacco: Never Alcohol Use Standard Drinks/Week Comments No 0 (1 standard drink = 0.6 oz pur e alcohol) AUDIT-C Answer Date Recorded Frequency of Alcohol Consumption Never 08/27/2018 Average Number of Drinks Not on file 019 Frequency of Binge Drinking Not on file 08/04 Comments No Sex and Gender Information Value Date Recorded Sex Assigned at Not on file Legal Sex Female 6:42 PM CDT Gender Identity Not on file Sexual Orientation Not on file Last Filed Vital Signs Vital Sign Reading Time Taken Comments Blood Pressure 104/58 08/08/2021 8:00 PM CDT Pulse 80 08/08/2021 6:32 PM CDT Temperature 36.8 ??C (98.2 ??F) 08/08/2021 6:32 PM CD T Respiratory Rate 18 08/08/2021 6:32 PM CDT Oxygen Saturation 97% 08/08/2021 8:05 PM CDT Inhaled Oxygen Concentration - - Weight 72.6 kg (160 lb) 08/08/2021 6:32 PM CDT Height 167.6 cm (5' 6 ) 08/08/2021 6:32 PM CDT Body Mass Index 25.82 08/08/2021 6:32 PM CDT Plan of Treatment Health Maintenance Due Date Last Done Comments Zoster Vaccines (1 of 2) 1985 Annual Medicare Wellness Visit 2000 Pneumococcal Vaccine: 65+ Years (1 of 1 - PCV) 2000 RSV Immunization or 60+ Years (1 - 1-dose 75+ series) 2010 COVID-19 Vaccine (1 - 2023- season) 2024 Influenza Adult (#1) 2024 02/22/2019, 02/25/2018, 02/26/2017, Additional history exists DTaP, Tdap and Td Vaccines (2 - Td or Tdap) 11/26/2028 11/26/2018 Meningococcal B Vaccine Aged Out No l onger eligible based on patient's age to complete this topic Meningococcal Vaccine Aged Out No marina tate eligible based on patient's age to complete this topic RSV Immunizations Under 20 Months Aged Out No longer eligible based on patient's age to complete this topic Insurance MEDICARE [facility] Member Subscriber Plan / Payer (Ef fective 2021-Present) Name:Leanna Barnard Relation to Subscriber:Self Name:Leanna Barnard Payer ID:Not on file Group ID:Not on file Type:[employer] Address: [address] [address] [place] [address] GENERIC - COMMERCIAL Advance Directives Documents on File Type Date Recorded Patient Director Imaging Expl anation Advance Directives and Living Will 12/22/2017 12:00 AM ADVANCED DIRECTIVES Advance Directives and Living Will 05/17/2014 12:00 AM ADVANCED DIRECTIVES Advance Directives and Living Will 05/17/2014 12:00 AM ADVANCED DIRECTIVES Advance Directives and Living Will 02/22/2014 12:00 AM ADVANCED DIRECTIVES Advance Directives and Living Will 02/22/2014 12:00 AM ADVANCED DIRECTIVES Advance Directives and Living Will 02/10/2014 12:00 AM ADVANCED DIRECTIVES Advance Directives and Living Will 02/10/2014 12:00 AM ADVANCED DIRECTIVES Advance Directives and Living Will 10/21/2013 12:00 AM ADVANCED DIRECTIVES Advance Directives and Living Will 10/21/2013 12:00 AM ADVANCED DIRECTIVES Advance Directives and Living Will 06/17/2013 12:00 AM ADVANCED DIRECTIVES Advance Directives and Living Will 06/17/2013 12:00 AM ADVANCED DIRECTIVES Advance Directives and Living Will 06/11/2013 12:00 AM ADVANCED DIRECTIVES Advance Directives and Living Will 05/06/2013 12:00 AM ADVANCED DIRECTIVES Advance Directives and Living Will 02/17/2013 12:00 AM ADVANCED DIRECTIVES Advance Directives and Living Will 02/16/2013 12:00 AM ADVANCED DIRECTIVES Advance Directives and Living Will 12/28/2012 12:00 AM ADVANCED DIRECTIVES Care Teams Checker Cashier Relationship Specialty Start Date End Date Mónica Coburn MD [address] [place] [address] PCP - General FAMILY PRACTICE 07/06/21
--- OUTSIDE RECORDS SUMMARY | 2024-06-02 10:45 | XMS_ITS | Encounter Summary ---
Author Organization [employer] Address 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
--- OUTSIDE RECORDS SUMMARY | 2024-06-02 10:45 | XMS_ITS | Clinical Summary ---
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
--- OUTSIDE RECORDS SUMMARY | 2024-06-02 10:45 | XMS_ITS | Encounter Summary ---
Author Organization [facility] Address 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
--- OUTSIDE RECORDS SUMMARY | 2024-06-02 10:45 | XMS_ITS | Encounter Summary ---
Author Organization [facility] Address 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
--- OUTSIDE RECORDS SUMMARY | 2024-06-02 10:45 | XMS_ITS | Patient Health Record ---
Author Organization [facility] Address [address] [place] [address] Care Team Providers Care Pile Driving Technician Name Role Phone Mónica Coburn Primary Care Provider [phone] Joel Neville Unavailable [phone] Mónica Chua APRN Unavailable [phone] Migration, Provider Unavailable Unavailable Allergies Allergen (clinical drug ingredient) Drug/Non Drug Allergy documented on EMR Reaction Allergy Type Onset Date Status sulfamethoxazole / trimethoprim Bactrim nausea Drug Allergy 12/07/2020 Active fesoterodine Toviaz blurry vision Drug Allergy 12/10/2021 Active Results Component Value Reference Range Notes Comp. Metabolic Panel (14) Reviewed date:06/14/2023 12:00:00 AM Interpretation: Performing Lab: Notes/Report: A/G Ratio 1.7 Albumin 3.9 g/dL Alkaline Phosphatase 62 IU/L ALT (SGPT) 17 IU/L AST (SGOT) 20 IU/L Bilirubin, Total 0.6 mg/dL BUN 15 mg/dL BUN/Creatinine Ratio 18 Calcium 9.3 mg/dL Carbon Dioxide, Total 21 mmol/L Chloride 100 mmol/L Creatinine 0.84 mg/dL eGFR 67 mL/min/1.73 Globulin, Total 2.3 g/dL Glucose 95 mg/dL Potassium 4.7 mmol/L Protein, Total 6.2 g/dL Sodium 137 mmol/L Hemoglobin A1c Reviewed date:06/14/2023 12:00:00 AM Interpretation: Performing Lab: Notes/Report: Hemoglobin A1c 5.5 % Lipid Panel Reviewed date:06/14/2023 12:00:00 AM Interpretation: Performing Lab: Notes/Report: Cholesterol, Total 193 mg/dL HDL Cholesterol 62 mg/dL LDL Chol Calc (NIH) 110 mg/dL Triglycerides 116 mg/dL VLDL Cholesterol Kb 21 mg/dL TSH Reviewed date:06/14/2023 12:00:00 AM Interpretation: Performing Lab: Notes/Report: TSH 0.915 uIU/mL Vitamin D, 25-Hydroxy Reviewed date:06/14/2023 12:00:00 AM Interpretation: Performing Lab: Notes/Report: Vitamin D, 25-Hydroxy 34.2 ng/mL AUDIT-C Reviewed date:09/23/2023 12:00:00 AM Interpretation: Performing Lab: Notes/Report: How many standard drinks con taining alcohol do you have on a typical day? N/A How often do you have 6 or m ore drinks on 1 occasion Never How often do you have a drin k containing alcohol Never Total Score 0 Patient Health Questionnaire (PHQ9) Reviewed date:09/23/2023 12:00:00 AM Interpretation: Performing Lab: Notes/Report: Feeling bad about yourself o r that you are a failure or have let yourself or your family down 0 Feeling down, depressed, or hopeless 0 Feeling tired or having little energy 1 If you checked off any probl ems, how difficult Not difficult at all have these problems made it for you to do your work, take care of things at home, or get along with other people? 0 Little interest or pleasure in doing things 0 Moving or speaking so slowly that other people could have noticed or the opposite being so figety or restless that you have been moving around a lot more than usual 0 Poor appetite or overeating 0 Thoughts that you would be b jigna off , or of hurting yourself 0 Trouble concentrating on thi ngs, such as reading the newspaper or watching television 2 Trouble falling or staying a sleep, or sleeping too much 0 CBC w/ Diff Reviewed date:12/22/2023 12:00:00 AM Interpretation: Performing Lab: Notes/Report: Baso Absolute 0.1 x10*3/mcL Basophil Auto 1.3 % Eos Absolute 0.1 x10*3/mcL Eosinophil Auto 2.2 % Hct 33.8 % Hgb 11.4 g/dL Lymph Absolute 1.8 x10*3/mcL Lymph Auto 32.8 % MCH 31.4 pg MCHC 33.7 g/dL MCV 93.1 fL [place] Absolute 0.5 x10*3/mcL [place] Auto 8.0 % MPV 7.0 fL Neutro Absolute 3.1 x10*3/mcL Neutro Auto 55.7 % Platelets 292 K/mcL RBC 3.64 x10*6/mcL RDW 12.7 % WBC 5.6 K/mcL Comprehensive Metabolic Pane l Reviewed date:12/22/2023 12:00:00 AM Interpretation: Performing Lab: Notes/Report: Albumin Lvl 4.0 g/dL Albumin/Globulin Ratio 1.9 Alk Phos 62 unit/L ALT 11 unit/L ANION GAP 5.4 mmol/L AST 15 unit/L Bilirubin Total 0.5 mg/dL BUN 15 mg/dL Calcium Lvl 9.3 mg/dL Chloride Lvl 101 mmol/L CO2 28 mmol/L Creatinine Lvl 0.73 mg/dL eGFR CKD-EPI 79 mL/min/1.73 m2 Glucose Lvl 99 mg/dL Potassium Lvl 5.0 mmol/L Protein Total 6.1 g/dL Sodium Lvl 134 mmol/L Hemoglobin A1c {Glycosylated } Reviewed date:12/22/2023 12:00:00 AM Interpretation: Performing Lab: Notes/Report: eAvg Glucose 114 mg/dL Hemoglobin A1c 5.6 % Lipid Panel {Chol, Trig, HDL , LDL} Reviewed date:12/22/2023 12:00:00 AM Interpretation: Performing Lab: Notes/Report: Chol/HDL 3 Cholesterol Total 163 mg/dL Coronary Risk 34 % HDL 55 mg/dL LDL 65 mg/dL NON HDL CHOLESTEROL 108 mg/dL Triglycerides 214 mg/dL T4 Free Reviewed date:12/22/2023 12:00:00 AM Interpretation: Performing Lab: Notes/Report: T4 Free 0.83 ng/dL Thyroid Stimulating Hormone Reviewed date:12/22/2023 12:00:00 AM Interpretation: Performing Lab: Notes/Report: TSH 1.10 mcIU/mL Vitamin D 25 Hydroxy Reviewed date:12/22/2023 12:00:00 AM Interpretation: Performing Lab: Notes/Report: Vitamin D 25 OH 53 ng/mL C-Reactive Protein Reviewed date:02/10/2024 12:00:00 AM Interpretation: Performing Lab: Notes/Report: CRP 3.7 mg/dL Comprehensive Metabolic Pane l Reviewed date:02/10/2024 12:00:00 AM Interpretation: Performing Lab: Notes/Report: Albumin Lvl 4.1 g/dL Albumin/Globulin Ratio 1.6 Alk Phos 65 unit/L ALT 12 unit/L ANION GAP 5.0 mmol/L AST 15 unit/L Bilirubin Total 0.8 mg/dL BUN 13 mg/dL Calcium Lvl 9.3 mg/dL Chloride Lvl 103 mmol/L CO2 30 mmol/L Creatinine Lvl 0.71 mg/dL eGFR CKD-EPI 81 mL/min/1.73 m2 Glucose Lvl 108 mg/dL Potassium Lvl 4.4 mmol/L Protein Total 6.6 g/dL Sodium Lvl 138 mmol/L Erythrocyte Sedimentation Ra te Reviewed date:02/10/2024 12:00:00 AM Interpretation: Performing Lab: Notes/Report: ESR, Westergren 15 mm/hr Uric Acid Reviewed date:02/10/2024 12:00:00 AM Interpretation: Performing Lab: Notes/Report: Uric Acid 3.5 mg/dL Reason For Referral No Information Medications Medication SIG (Take, Route, Frequency, Duration) Notes Start Date End Date Status amLODIPine Besylate 5 MG 1 Oral every day; Duration: 90 02/06/2024 08/03/2024 Unknown Alendronate Sodium 70 MG 1 Oral once a week; Duration: 90 06/16/2023 06/09/2024 Unknown DULoxetine HCl 20 MG 1 Oral every night at bedtime; Duration: 90 02/16/2024 08/13/2024 Active Tylenol 8 Hour Arthritis Pain 650 MG 2 Oral three times a day; Duration: 0 09/03/2022 Unknown Mupirocin 2 % External two times a day; Duration: 0 03/17/2024 Unknown Lisinopril 20 MG 1/2 Oral every day; Duration: 90 days 12/19/2023 06/15/2024 Active Multivitamin oral; Duration: 0 *Pick strength-form from [employer] for eRX* 06/16/2023 Active Metamucil oral; Duration: 0 *Pick strength-form from [employer] for eRX* 10/27/2020 Not-Taking busPIRone HCl 10 MG 0.5-1 Oral every 6-8 hours; Duration: 0 ,PRN Reason:for anxiety 10/20/2023 Not-Taking Diclofenac Sodium 50 MG 1 tablet as needed Orally Twice a day; Duration: 30 days As needed. STOP taking 7 days prior to upcoming procedure. 05/12/2024 Active Pregabalin 150 MG 1 Oral at bed time; Duration: 90 days 05/17/2024 11/13/2024 Active Centrum Silver oral; Duration: 0 *Pick strength-form from [employer] for eRX* 10/27/2020 Unknown Vitamin D2 oral; Duration: 0 *Pick strength-form from [employer] for eRX* 12/24/2023 Unknown Immunizations Vaccine Route Administration Date Status Comme nts Zoster IM Intramuscular 06/10/2022 Administered ,sourc ename : New immunization record ,immstatus : Complete Zoster IM Intramuscular 09/06/2022 Administered ,sourc ename : New immunization record ,immstatus : Complete Tdap Unknown 11/26/2018 Administered ,sourcename : Historical information -from other registry Source VFC Code: : RSV-MAb (Respiratory syncytial virus immune globulin) IM Intramuscular 03/21/2023 Administered ,sourcename : Historical information -source unspecified ,immstatus : Complete Pneumococcal polysaccharide PPV23 Unknown 02/02/2010 Administered ,sourcename : Historical information -from other registry Source VFC Code: : Pneumococcal conjugate PCV 13 Unknown 03/03/2020 Administered ,sourcename : Historical information -from other registry Source VFC Code: : Moderna Covid-19 Vaccine 1st dose Unknown 2020 Administered Source VFC Code: : Moderna Covid-19 Vaccine 1st dose Unknown 07/01/2020 Administered Source VFC Code: : Moderna Covid-19 Vaccine 1st dose Unknown 03/07/2021 Administered Source VFC Code: : Moderna Covid-19 Vaccine 1st dose Unknown 04/10/2022 Administered ,sourcename : Historical information -from public agency Source VFC Code: : Influenza, high-dose seasonal, quadrivalent, preservative free >65 yrs IM Intramuscular 03/04/2022 Administered ,sourcename : New immunization record ,immstatus : Complete Source VFC Code: : Influenza, high-dose seasonal, quadrivalent, preservative free >65 yrs IM Intramuscular 02/20/2023 Administered ,sourcename : N ew immunization record ,immstatus : Complete Influenza, high dose seasonal IM Intramuscular 02/09/2024 Administered ,sourcename : N ew immunization record ,immstatus : Complete Problems Problem Type SNOMED Code ICD Code Onset Dates Problem Status W/U Status Risk Notes Problem Neoplasm of uncertain behavior of skin (91795887) Neoplasm of uncertain behavior of skin (D48.5) 024 Active confirmed Problem Non-toxic multinodular goiter (45718558) 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) 023 Active confirmed Problem Vitamin D deficiency (39270131) Vitamin D deficiency, unspecified (E55.9) 021 Active confirmed Problem Mild major depression, single episode (94175865) Major depressive disorder, single episode, mild (F32.0) 023 Active confirmed Problem Anxiety disorder (905812354) Anxiety disorder, unspecified (F41.9) 024 Active confirmed Problem Polyneuropathy (21665264) Polyneuropathy, unspecified (G62.9) Active confirmed Problem Perichondritis of pinna (26036655) Unspecified perichondritis of right external ear (H61.001) 024 Active confirmed Problem Hearing loss (36943626) Unspecified hearing loss, unspecified ear (H91.90) 022 Active confirmed Problem Essential hypertension (50317316) Essential (primary) hypertension (I10) 021 Active confirmed Problem Gastro-esophageal reflux disease without esophagitis (202137224) Gastro-esophageal reflux disease without esophagitis (K21.9) 021 Active confirmed Problem Actinic keratosis (052101) Actinic keratosis (L57.0) 024 Active confirmed Problem Seborrheic keratosis (94723383) Other seborrheic keratosis (L82.1) 023 Active confirmed Problem Primary gout (92525462) Idiopathic gout, right ankle and foot (M10.071) 022 Active confirmed Problem Gout (25115070) Gout, unspecifie d (M10.9) 024 Active confirmed Problem Knee joint effusion (715406944) Effusion, left knee (M25.462) 024 Active confirmed Problem Effusion of joint of ankle AND/OR foot (7989211) Effusion, left ankle (M25.472) Active confirmed Problem Pain of right knee region (finding) (617254891684392) Pain in right knee (M25.561) Active confirmed Problem Pain of left knee joint (finding) (327501064234703) Pain in left knee (M25.562) 024 Active confirmed Problem Arthralgia of the ankle and/or foot (287485542) Pain in left ankle and joints of left foot (M25.572) Active confirmed Problem Spinal stenosis (27179007) Spinal stenosis, site unspecified (M48.00) 022 Active confirmed Problem Low back pain (525662318) Low back pain (M54.5) Active confirmed Problem Trochanteric bursitis of left hip (258395871782734) Trochanteric bursitis, left hip (M70.62) 023 Active confirmed Problem Age-related osteoporosis (800071109) Age-related osteoporosis without current pathological fracture (M81.0) 023 Active confirmed Problem Overactive bladder (036767844) Overactive bladder (N32.81) 022 Active confirmed Problem Cardiac murmur, unspecified (R01.1) 021 Active confirmed Problem Abnormal gait (03777015) Unspecified abnormalities of gait and mobility (R26.9) 023 Active confirmed Problem Disorder of musculoskeletal system (861969) Other symptoms and signs involving the musculoskeletal system (R29.898) 023 Active confirmed Problem Acute tear of meniscus of left knee (disorder) (09317408205345521) Unspecified tear of unspecified meniscus, current injury, left knee, initial encounter (S83.207A) Active confirmed Problem Adult health examination (617820529) Encounter for general adult medical examination without abnormal findings (Z00.00) 024 Active confirmed Problem Pre-procedure evaluation check (958105998) Encounter for other preprocedural examination (Z01.818) Active confirmed Problem Vaccination given (884542199) Encounter for immunization (Z23) 10/07/2 024 Active confirmed Problem Do not resuscitate (706874333) Do not resuscitate (Z66) 024 Active confirmed Problem Postmenopausal state (70094732) Asymptomatic menopausal state (Z78.0) 023 Active confirmed Problem History of fall (211879351) History of falling (Z91.81) 024 Active confirmed Problem Neurogenic claudication (839645393) Spinal stenosis, lumbar region with neurogenic claudication (M48.062) 023 Active confirmed Problem Prediabetes (180071660) Prediabetes (R73.03) 023 Active confirmed Problem Cough (finding) (54972000) Cough, unspecified (R05.9) 023 Active confirmed Problem Body mass index 25-29 - overweight (376212943) Body mass index (BMI) 27.0-27.9, adult (Z68.27) 024 Active confirmed Problem Moderate major depression, single episode (18346765) Major depressive disorder, single episode, moderate (F32.1) 023 Inactive confirmed Problem 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) 024 Inactive confirmed Problem Hyperglycemia (51461090) Hyperglycemia, unspecified (R73.9) 021 Inactive confirmed Problem 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, 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) 023 Problem resolved confirmed Problem Hyperkalemia (62265089) Hyperkalemia (E87.5) 023 Problem resolved confirmed Problem Trigeminal neuralgia (98848269) Trigeminal neuralgia (G50.0) 023 Problem resolved confirmed Problem Impacted cerumen (60860548) Impacted cerumen, unspecified ear (H61.20) 023 Problem resolved confirmed Problem Vasomotor rhinitis (1631220) Vasomotor rhinitis (J30.0) 023 Problem resolved confirmed Problem Constipation (12704394) Constipation, unspecified (K59.00) 022 Problem resolved confirmed Problem Constipation (07185176) Other constipation (K59.09) 023 Problem resolved confirmed Problem Chondrocalcinosis (466795074) Other chondrocalcinosis , unspecified site (M11.20) Problem resolved confirmed Problem Pain in wrist (50940792) Pain in right wrist (M25.531) Problem resolved confirmed Problem Pain of left hip joint (finding) (543501442244931) Pain in left hip (M25.552) Problem resolved confirmed Problem Pain in unspecified knee (M25.569) Problem resolved confirmed Problem Arthralgia of the ankle and/or foot (131218833) Pain in right ankle and joints of right foot (M25.571) Problem resolved confirmed Problem Postnasal drip (23950852) Postnasal drip (R09.82) Problem resolved confirmed Problem Dysphagia (43145072) Dysphagia, unspecified (R13.10) Problem resolved confirmed Problem Fatigue (59746120) Other fatigue (R53.83) Problem resolved confirmed Problem Abrasion of hand (980748931) Abrasion of unspecified hand, initial encounter (S60.519A) Problem resolved confirmed Problem Injury of left lower leg (49725091733000663) Unspecified injury of left lower leg, initial encounter (S89.92XA) Problem resolved confirmed Problem Fall () Unspecified fall , initial encounter (W19.XXXA) Problem resolved confirmed Problem Depression Screening (734996404) Encounter for screening for depression (Z13.31) Problem resolved confirmed Problem Postprocedural states (844067631) Other specified postprocedural states (Z98.890) Problem resolved confirmed Vital Signs Heart Rate 78 /min 05/12/2024 Temperature 97.0 degrees Fahrenheit 05/12/2024 Respiratory Rate 18 /min 03/17/2024 Height-cm 162.56 cm 05/12/2024 Oximetry 97 % 05/12/2024 Blood pressure diastolic 68 mm Hg 05/12/2024 Weight-kg 75.3 kg 05/12/2024 Height 64.00 in 05/12/2024 Blood pressure systolic 124 mm Hg 05/12/2024 Weight 166 lbs 05/12/2024 BMI 28.49 kg/m2 05/12/2024 Encounters Encounter Location Date Provider Diagnosis [address] [address] 06/13/2023 Provider Migration Hyperglycemia, unspecified R73.9 ; Essential (primary) hypertension I10 ; Prediabetes R73.03 and Hyperkalemia E87.[address] [address] 06/16/2023 [facility] Primary generalized (osteo)arthritis M15.0 ; Hyperglycemia, unspecified R73.9 ; Major depressive disorder, single episode, moderate F32.1 ; Encounter for general adult medical examination without abnormal findings Z00.00 ; Hyperkalemia E87.5 ; Age-related osteoporosis without current pathological fracture M81.0 ; Essential (primary) hypertension I10 ; Encounter for immunization Z23 ; Impacted cerumen, unspecified ear H61.20 ; Spinal stenosis, site unspecified M48.00 ; Postnasal drip R09.82 ; Cough, unspecified R05.9 ; Actinic keratosis L57.0 ; Spinal stenosis, 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 ; Asymptomatic menopausal state Z78.0 ; Neoplasm of uncertain behavior of skin D48.5 ; Pain in right knee M25.561 ; Polyneuropathy, unspecified G62.9 and Major depressive disorder, single episode, mild F32.[address] [address] 07/30/2023 Joel Gem Pain in left knee M25.[address] [address] 08/05/2023 Provider Migration Pain in left knee M25.[address] [address] 08/07/2023 Provider Migration Pain in left knee M25.[address] [address] 08/12/2023 Provider Migration Pain in right knee M25.[address] [address] 09/22/2023 Mónica Coburn Body mass index (BMI ) 27.0-27.9, adult Z68.27 ; Gastro-esophageal reflux disease without esophagitis K21.9 ; Spinal stenosis, 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 ; Unspecified tear of unspecified meniscus, current injury, left knee, initial encounter S83.207A ; History of falling Z91.81 ; Age-related osteoporosis without current pathological fracture M81.0 ; Pain in left knee M25.562 and Encounter for general adult medical examination without abnormal findings Z00.[address] [address] 10/20/2023 Provider Migration Anxiety disorder, unspecified F41.[address] [address] 12/22/2023 Provider Migration Vitamin D deficiency, unspecified E55.9 ; Prediabetes R73.03 and Essential (primary) hypertension I10 [address] [address] 12/24/2023 Mónica Coburn Essential (primary) hypertension I10 ; Spinal stenosis, 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 ; Pain in left knee M25.562 ; Other seborrheic keratosis L82.1 and Actinic keratosis L57.[address] [address] 12/31/2023 Mónica Coburn Do not resuscitate Z 66 and Actinic keratosis L57.[address] [address] 02/09/2024 Mónica Coburn Encounter for immunization Z23 ; Gout, unspecified M10.9 ; Effusion, left ankle M25.472 and Pain in left ankle and joints of left foot M25.[address] [address] 03/16/2024 Mónica Chua Pain in left knee M25.562 ; Encounter for other preprocedural examination Z01.818 and Effusion, left knee M25.[address] [address] 03/17/2024 Mónica Coburn Unspecified perichondritis of right external ear H61.001 and Actinic keratosis L57.[address] [address] 04/30/2024 [facility] 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 ; Actinic keratosis L57.0 ; Prediabetes R73.03 ; Spinal stenosis, 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 ; Essential (primary) hypertension I10 ; Primary osteoarthritis of left knee M17.12 and Encounter for preoperative assessment Z01.[address] [address] 05/12/2024 [facility] 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 ; Pain in left knee M25.562 and Spinal stenosis, site unspecified M48.[address] [address] 04/03/2024 Provider Migration [address] [address] 04/04/2024 Provider Migration [address] [address] 05/17/2024 [facility] Polyneuropathy, unspecified G62.9 Assessments Encounter Date Diagnosis (ICD Code) Assessment Notes Treatment Notes Treatment Clinical Notes 06/13/2023 Hyperkalemia (ICD-10 - E87.5) 06/13/2023 Essential (primary) hypertension (ICD-10 - I10) 06/13/2023 Hyperglycemia, unspecified (ICD-10 - R73.9) 06/13/2023 Prediabetes (ICD-10 - R73.03) 06/16/2023 Neoplasm of uncertai n behavior of skin (ICD-10 - D48.5) 06/16/2023 Hyperkalemia (ICD-10 - E87.5) 06/16/2023 Major depressive disorder, single episode, mild (ICD-10 - F32.0) 06/16/2023 Major depressive disorder, single episode, moderate (ICD-10 - F32.1) 06/16/2023 Polyneuropathy, unspecified (ICD-10 - G62.9) 06/16/2023 Impacted cerumen, unspecified ear (ICD-10 - H61.20) 06/16/2023 Essential (primary) hypertension (ICD-10 - I10) 06/16/2023 Actinic keratosis (ICD-10 - L57.0) 06/16/2023 Primary generalized (osteo)arthritis (ICD-10 - M15.0) 06/16/2023 Pain in right knee (ICD-10 - M25.561) 06/16/2023 Spinal stenosis, sit e unspecified (ICD-10 - M48.00) 06/16/2023 Age-related osteoporosis without current pathological fracture (ICD-10 - M81.0) 06/16/2023 Postnasal drip (ICD- 10 - R09.82) 06/16/2023 Hyperglycemia, unspecified (ICD-10 - R73.9) 06/16/2023 Encounter for genera l adult medical examination without abnormal findings (ICD-10 - Z00.00) 06/16/2023 Encounter for immunization (ICD-10 - Z23) 06/16/2023 Asymptomatic menopausal state (ICD-10 - Z78.0) 06/16/2023 Spinal stenosis, lumbar region with neurogenic claudication (ICD-10 - M48.062) 06/16/2023 Cough, unspecified (ICD-10 - R05.9) 07/30/2023 Pain in left knee (ICD-10 - M25.562) 08/05/2023 Pain in left knee (ICD-10 - M25.562) 08/07/2023 Pain in left knee (ICD-10 - M25.562) 08/12/2023 Pain in right knee (ICD-10 - M25.561) 09/22/2023 Gastro-esophageal reflux disease without esophagitis (ICD-10 - K21.9) 09/22/2023 Pain in left knee (ICD-10 - M25.562) 09/22/2023 Age-related osteoporosis without current pathological fracture (ICD-10 - M81.0) 09/22/2023 Unspecified tear of unspecified meniscus, current injury, left knee, initial encounter (ICD-10 - S83.207A) 09/22/2023 Encounter for genera l adult medical examination without abnormal findings (ICD-10 - Z00.00) 09/22/2023 History of falling (ICD-10 - Z91.81) 09/22/2023 Spinal stenosis, lumbar region with neurogenic claudication (ICD-10 - M48.062) 09/22/2023 Body mass index (BMI ) 27.0-27.9, adult (ICD-10 - Z68.27) 10/20/2023 Anxiety disorder, unspecified (ICD-10 - F41.9) 12/22/2023 Vitamin D deficiency , unspecified (ICD-10 - E55.9) 12/22/2023 Essential (primary) hypertension (ICD-10 - I10) 12/22/2023 Prediabetes (ICD-10 - R73.03) 12/24/2023 Essential (primary) hypertension (ICD-10 - I10) 12/24/2023 Actinic keratosis (ICD-10 - L57.0) 12/24/2023 Other seborrheic keratosis (ICD-10 - L82.1) 12/24/2023 Pain in left knee (ICD-10 - M25.562) 12/24/2023 Spinal stenosis, lumbar region with neurogenic claudication (ICD-10 - M48.062) 12/31/2023 Actinic keratosis (ICD-10 - L57.0) 12/31/2023 Do not resuscitate (ICD-10 - Z66) 02/09/2024 Gout, unspecified (ICD-10 - M10.9) 02/09/2024 Effusion, left ankle (ICD-10 - M25.472) 02/09/2024 Pain in left ankle a nd joints of left foot (ICD-10 - M25.572) 02/09/2024 Encounter for immunization (ICD-10 - Z23) 03/16/2024 Effusion, left knee (ICD-10 - M25.462) 03/16/2024 Pain in left knee (ICD-10 - M25.562) 03/16/2024 Encounter for other preprocedural examination (ICD-10 - Z01.818) 03/17/2024 Unspecified perichondritis of right external ear (ICD-10 - H61.001) 03/17/2024 Actinic keratosis (ICD-10 - L57.0) 04/30/2024 Actinic keratosis (ICD-10 - L57.0) 04/30/2024 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 05/12/2024 Other Cryotherapy instructions Patient was informed [...] reading of 124/68 mmHg. Plan Of Treatment Next Appt Details Provider Name:Ingrid gurrola, 06/22/2024 10:15:00 AM, [address], [place], [address], [phone] Provider Name:Mónica Coburn , 09/16/2024 01:30:00 PM, [address], [place], [address], [phone] Insurance Providers Payer Name Payer Address Payer Phone Subscriber Number Group Number Insured Name Patient Relationship to Insured Coverage Start Date Coverage End Date NGS Medicare RHC [address] [place] [phone] [id number] SaraiHerbert mendozaen Self - patient is the insured [address] [place] [address] [id number] Plan G Leanna Barnard Self - patient is the insured 4 Medical (General) History Medical History History ICD Code Vitamin D deficiency, unspecified E55.9 Major depressive disorder, single episod e, mild F32.0 Anxiety disorder, unspecified F41.9 Polyneuropathy, unspecified G62.9 Unspecified hearing loss, unspecified ea r H91.90 Essential (primary) hypertension I10 Gastro-esophageal reflux disease without esophagitis K21.9 Idiopathic gout, right ankle and foot M1 0.071 Spinal stenosis, site unspecified M48.00 Age-related osteoporosis without current pathological fracture M81.0 Overactive bladder N32.81 Cardiac murmur, unspecified R01.1 Trochanteric bursitis, left hip M70.62 Prediabetes R73.03 Surgical History Surgery Date(Month/Year) cholecystecomy ankle surgery back surgery Carpal tunnel surgery ,notes : [address] Smith Hysterectomy _ Colon Resection 2 Arthroscopy ,notes : Dr Mcneill person - Left knee, partial medial and lateral meniscectomies. 10/27/2023
--- OUTSIDE RECORDS SUMMARY | 2024-06-02 10:46 | XMS_ITS | Clinical Summary ---
Author Organization [facility] Address Formerly [facility]. [place], [place] [address] [place] [address] Care Team Providers Care Senior Underwriter Name Role Phone Mónica Coburn MD Primary [...] 02/10/2014 Overview (07/07/2018): Date Onset: 02/10/2014 Other care home (current) drug therapy 4 Overview (08/26/2018): Date [...] age to complete this topic Insurance MEDICARE [facility] GENER[facility] - COMMERCIAL Advance Directives Documents on File Type Date Recorded Patient Auto Transmission Technician Expl anation Advance Directives and Living Will [...] 12/28/2012 12:00 AM ADVANCED DIRECTIVES Care Teams Senior Underwriter Relationship Specialty Start Date End Date Mónica Coburn MD [address] [place] [address] PCP - General FAMILY PRACTICE 07/06/21
[2024-06-02 12:22] LABS: Basophils Absolute Auto 0.1 K/mm3 (0.0-0.1); Basophils Percent Auto 0.9 % (0.2-1.2); Eosinophils Absolute Auto 0.1 K/mm3 (0-0.3); Eosinophils Percent Auto 1.4 % (0-4.4); Hemoglobin 12.4 g/dL (12.0-15.0); Immature Granulocyte Absolute 0.01 K/mm3 (0.00-0.031); Immature Granulocyte Percent A 0.2 % (0-0.5); Lymphocytes Absolute Auto 2.13 K/mm3 (0.9-3.2); Lymphocytes Percent Auto 36.9 % (18.3-44.2); Mean Corpuscular HGB Conc 31.8 g/dl (32-36); Mean Corpuscular Hemoglobin 30.4 pg (26-34); Mean Corpuscular Volume 95.6 fl (80-100); Mean Platelet Volume 8.6 fl (7.4-10.4); Monocytes Absolute Auto 0.5 K/mm3 (0.1-0.6); Neutrophils Percent Auto 51.6 % (45.5-73.1); Platelet Count Result 257 k/mm3 (150-375); Red Blood Count 4.08 M/mm3 (4.2-5.4); Red Cell Distribution Width 12.4 % (11.5-14.5); White Blood Count 5.8 K/mm3 (4.5-10.0)
[2024-06-02 12:40] LABS: Albumin Level 4.1 g/dL (3.5-5.1); Estimated Glomerular Filt Rate > 60; Glucose 89 mg/dL (65-110); Urine Cotinine NEGATIVE
[2024-06-02 13:32] LABS: MRSA (PCR) NOT DETECTED (NOT DETECTE)
== END 2024-06-02 09:47 | disposition home or self-care (01) ==
LOC: ANHSURGERY 09:54
PROVIDERS: PCP Family Medicine; Visit Provider Orthopaedic Surgery
DX: Z01.812 Encounter for preprocedural laboratory examination (principal); M17.12 Unilateral primary osteoarthritis, left knee
CPT/HCPCS: 80307; 82040; 82565; 82947; 85025; 87641

== ENCOUNTER 2024-06-21 09:15 | Outpatient (CLI) | payer MEDICARE, OTHER, SELFPAY ==
--- OUTSIDE RECORDS SUMMARY | 2024-06-21 12:05 | XMS_ITS | Patient Health Record ---
Author Organization [facility] Address [address] [place] [address] Care Team Providers Care Director Informatics Name Role Phone Mónica Coburn Primary Care Provider [phone] Joel Rabago Unavailable [phone] Ingrid Kowalski Unavailable [phone] Mónica Chua Unavailable [phone] Migration, Provider Unavailable Unavailable Allergies Allergen (clinical drug ingredient) Drug/Non Drug Allergy documented on EMR Reaction Allergy Type Onset Date Status sulfamethoxazole / trimethoprim Bactrim nausea Drug Allergy 12/07/2020 Active fesoterodine Toviaz blurry vision Drug Allergy 12/10/2021 Active Results Component Value Reference Range Notes AUDIT-C Reviewed date:09/23/2023 12:00:00 AM Interpretation: Performing [...] pg MCHC 33.7 g/dL MCV 93.1 fL [place] Absolute 0.5 x10*3/mcL [place] Auto 8.0 % MPV 7.0 fL Neutro [...] Duration) Notes Start Date End Date Status Centrum Silver oral; Duration: 0 *Pick strength-form from [employer] for eRX* 10/27/2020 Unknown DULoxetine HCl 20 MG 1 Oral every night at bedtime; Duration: 90 02/16/2024 08/13/2024 Active Mupirocin 2 % External two times a day; Duration: 0 03/17/2024 Unknown amLODIPine Besylate 5 MG 1 Oral every day; Duration: 90 02/06/2024 08/03/2024 Unknown busPIRone HCl 10 MG 0.5-1 Oral every 6-8 hours; Duration: 0 ,PRN Reason:for anxiety 10/20/2023 Not-Taking Vitamin D2 oral; Duration: 0 *Pick strength-form from [employer] for eRX* 12/24/2023 Unknown Lisinopril 20 MG 1 tablet Orally Once a day; Duration: 90 days Active Metamucil oral; Duration: 0 *Pick strength-form from [employer] for eRX* 10/27/2020 Not-Taking Multivitamin oral; Duration: 0 *Pick strength-form from [employer] for eRX* 06/16/2023 Active Tylenol 8 Hour Arthritis Pain 650 MG 2 Oral three times a day; Duration: 0 09/03/2022 Unknown Pregabalin 150 MG 1 Oral at bed time; Duration: 90 days 05/17/2024 11/13/2024 Active Diclofenac Sodium 50 MG 1 tablet as needed Orally Twice a day; Duration: 30 days As needed. STOP taking 7 days prior to upcoming procedure. 05/12/2024 Active Immunizations Vaccine Route Administration Date Status Comme nts Influenza, high dose seasonal IM Intramuscular 02/09/2024 Administered ,sourcename : N ew immunization record ,immstatus : Complete Influenza, high-dose seasonal, quadrivalent, preservative free >65 yrs IM Intramuscular 03/04/2022 Administered ,sourcename : New immunization record ,immstatus : Complete Source VFC Code: : Influenza, high-dose seasonal, quadrivalent, preservative free >65 yrs IM Intramuscular 02/20/2023 Administered ,sourcename : N ew immunization record ,immstatus : Complete Moderna Covid-19 Vaccine 1st dose Unknown 2020 Administered Source VFC Code: : Moderna Covid-19 Vaccine 1st dose Unknown 07/01/2020 Administered Source VFC Code: : Moderna Covid-19 Vaccine 1st dose Unknown 03/07/2021 Administered Source VFC Code: : Moderna Covid-19 Vaccine 1st dose Unknown 04/10/2022 Administered ,sourcename : Historical information -from public agency Source VFC Code: : Pneumococcal conjugate PCV 13 Unknown 03/03/2020 Administered ,sourcename : Historical information -from other registry Source VFC Code: : Pneumococcal polysaccharide PPV23 Unknown 02/02/2010 Administered ,sourcename : Historical information -from other registry Source VFC Code: : RSV-MAb (Respiratory syncytial virus immune globulin) IM Intramuscular 03/21/2023 Administered ,sourcename : Historical information -source unspecified ,immstatus : Complete Tdap Unknown 11/26/2018 Administered ,sourcename : Historical information -from other registry Source VFC Code: : Zoster IM Intramuscular 06/10/2022 Administered ,sourc ename : New immunization record ,immstatus : Complete Zoster IM Intramuscular 09/06/2022 Administered ,sourc ename : New immunization record ,immstatus : Complete Problems Problem Type SNOMED Code ICD Code Onset Dates Problem Status W/U Status Risk Notes Problem Postprocedural states (210881552) Other specified postprocedural states (Z98.890) 022 Problem resolved confirmed Problem Moderate major depression, single episode (19045104) Major depressive disorder, single episode, moderate (F32.1) 023 Inactive confirmed Problem Prediabetes (558947813) Prediabetes (R73.03) 023 Active confirmed Problem Vaccination given (141239692) Encounter for immunization (Z23) 024 Active confirmed Problem Overactive bladder (413695962) Overactive bladder (N32.81) 022 Active confirmed Problem Trochanteric bursitis of left hip (990223612275799) Trochanteric bursitis, left hip (M70.62) 023 Active confirmed Problem Pain of left knee joint (finding) (003120430646551) Pain in left knee (M25.562) 024 Active confirmed Problem Vitamin D deficiency (87393362) Vitamin D deficiency, unspecified (E55.9) 021 Active confirmed Problem Postnasal drip (73363523) Postnasal drip (R09.82) 023 Problem resolved confirmed Problem Arthralgia of the ankle and/or foot (515666036) Pain in right ankle and joints of right foot (M25.571) 021 Problem resolved confirmed Problem Impacted cerumen (25967112) Impacted cerumen, unspecified ear (H61.20) Problem resolved confirmed Problem Cough (finding) (41311101) Cough, unspecified (R05.9) Active confirmed Problem History of fall (620542697) History of falling (Z91.81) Active confirmed Problem Postmenopausal state (01143603) Asymptomatic menopausal state (Z78.0) Active confirmed Problem Neoplasm of uncertain behavior of skin (72739563) Neoplasm of uncertain behavior of skin (D48.5) Active confirmed Problem Depression Screening (687245758) Encounter for screening for depression (Z13.31) Problem resolved confirmed Problem Fall () Unspecified fall , initial encounter (W19.XXXA) Problem resolved confirmed Problem Injury of left lower leg (01761813887908478) Unspecified injury of left lower leg, initial encounter (S89.92XA) Problem resolved confirmed Problem Abrasion of hand (712204551) Abrasion of unspecified hand, initial encounter (S60.519A) Problem resolved confirmed Problem Fatigue (56275463) Other fatigue (R53.83) Problem resolved confirmed Problem Dysphagia (22423566) Dysphagia, unspecified (R13.10) Problem resolved confirmed Problem Pain in unspecified knee (M25.569) Problem resolved confirmed Problem Pain of left hip joint (finding) (613960143036783) Pain in left hip (M25.552) Problem resolved confirmed Problem Pain in wrist (77097359) Pain in right wrist (M25.531) Problem resolved confirmed Problem Chondrocalcinosis (243810553) Other chondrocalcinosis , unspecified site (M11.20) Problem resolved confirmed Problem Constipation (48975146) Other constipation (K59.09) Problem resolved confirmed Problem Constipation (29607587) Constipation, unspecified (K59.00) Problem resolved confirmed Problem Vasomotor rhinitis (8706598) Vasomotor rhinitis (J30.0) 023 Problem resolved confirmed Problem Trigeminal neuralgia (06645988) Trigeminal neuralgia (G50.0) 023 Problem resolved confirmed Problem Hyperkalemia (34588314) Hyperkalemia (E87.5) 023 Problem resolved confirmed Problem 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) Neoplasm of uncertain behavior, 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) 023 Problem resolved confirmed Problem Hyperglycemia (89267740) Hyperglycemia, unspecified (R73.9) 021 Inactive confirmed Problem 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) Inactive confirmed Problem Body mass index 25-29 - overweight (217624351) Body mass index (BMI) 27.0-27.9, adult (Z68.27) Active confirmed Problem Neurogenic claudication (513392340) Spinal stenosis, lumbar region with neurogenic claudication (M48.062) 023 Active confirmed Problem Do not resuscitate (359751267) Do not resuscitate (Z66) 024 Active confirmed Problem Pre-procedure evaluation check (903859779) Encounter for other preprocedural examination (Z01.818) Active confirmed Problem Adult health examination (861503013) Encounter for general adult medical examination without abnormal findings (Z00.00) 024 Active confirmed Problem Acute tear of meniscus of left knee (disorder) (99552902280233571) Unspecified tear of unspecified meniscus, current injury, left knee, initial encounter (S83.207A) 024 Active confirmed Problem Disorder of musculoskeletal system (445618) Other symptoms and signs involving the musculoskeletal system (R29.898) Active confirmed Problem Abnormal gait (44525606) Unspecified abnormalities of gait and mobility (R26.9) 023 Active confirmed Problem Cardiac murmur, unspecified (R01.1) Active confirmed Problem Age-related osteoporosis (876146643) Age-related osteoporosis without current pathological fracture (M81.0) 023 Active confirmed Problem Low back pain (912293094) Low back pain (M54.5) Active confirmed Problem Spinal stenosis (13222344) Spinal stenosis, site unspecified (M48.00) Active confirmed Problem Arthralgia of the ankle and/or foot (146459316) Pain in left ankle and joints of left foot (M25.572) Active confirmed Problem Pain of right knee region (finding) (069396678378357) Pain in right knee (M25.561) Active confirmed Problem Effusion of joint of ankle AND/OR foot (5297115) Effusion, left ankle (M25.472) Active confirmed Problem Knee joint effusion (172651036) Effusion, left knee (M25.462) Active confirmed Problem Gout (92713875) Gout, unspecifie d (M10.9) Active confirmed Problem Primary gout (83312283) Idiopathic gout, right ankle and foot (M10.071) Active confirmed Problem Seborrheic keratosis (69723115) Other seborrheic keratosis (L82.1) Active confirmed Problem Actinic keratosis (691580) Actinic keratosis (L57.0) Active confirmed Problem Gastro-esophageal reflux disease without esophagitis (349053032) Gastro-esophageal reflux disease without esophagitis (K21.9) Active confirmed Problem Essential hypertension (67350595) Essential (primary) hypertension (I10) Active confirmed Problem Hearing loss (04685368) Unspecified hearing loss, unspecified ear (H91.90) Active confirmed Problem Perichondritis of pinna (39529797) Unspecified perichondritis of right external ear (H61.001) Active confirmed Problem Polyneuropathy (06164814) Polyneuropathy, unspecified (G62.9) Active confirmed Problem Anxiety disorder (206105097) Anxiety disorder, unspecified (F41.9) Active confirmed Problem Mild major depression, single episode (24017530) Major depressive disorder, single episode, mild (F32.0) 023 Active confirmed Problem Non-toxic multinodular goiter (29576934) 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) 023 Active confirmed Vital Signs Heart Rate 73 /min 06/08/2024 Temperature 97.2 degrees Fahrenheit 06/08/2024 Respiratory Rate 18 /min 06/08/2024 Height-cm 162.56 cm 06/08/2024 Oximetry 97 % 06/08/2024 Blood pressure diastolic 62 mm Hg 06/08/2024 Weight-kg 77.02 kg 06/08/2024 Height 64.00 in 06/08/2024 Blood pressure systolic 138 mm Hg 06/08/2024 Weight 169.8 lbs 06/08/2024 BMI 29.14 kg/m2 06/08/2024 Encounters Encounter Location Date Provider Diagnosis [address] [address] 07/30/2023 Joel Gem Pain in left knee M25.[address] [address] 08/05/2023 Provider Migration Pain in left knee M25.[address] [address] 08/07/2023 Provider Migration Pain in left knee M25.[address] [address] 08/12/2023 Provider Migration Pain in right knee M25.[address] [address] 09/22/2023 [facility] Body mass index (BMI ) 27.0-27.9, adult [...] adult medical examination without abnormal findings Z00.[address] [address] 10/20/2023 Provider Migration Anxiety disorder, unspecified F41.[address] [address] 12/22/2023 Provider Migration Vitamin D deficiency, unspecified E55.9 ; Prediabetes R73.03 and Essential (primary) hypertension I10 [address] [address] 12/24/2023 Mónica Coburn Essential (primary) hypertension I10 ; Spinal stenosis, 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 ; Pain in left knee M25.562 ; Other seborrheic keratosis L82.1 and Actinic keratosis L57.[address] [address] 12/31/2023 Mónica Coburn Do not resuscitate Z 66 and Actinic keratosis L57.[address] [address] 02/09/2024 Mónica Coburn Encounter for immunization Z23 ; Gout, unspecified M10.9 ; Effusion, left ankle M25.472 and Pain in left ankle and joints of left foot M25.[address] [address] 03/16/2024 Mónica Chua Pain in left knee M25.562 ; Encounter for other preprocedural examination Z01.818 and Effusion, left knee M25.[address] [address] 03/17/2024 Mónica Coburn Unspecified perichondritis of right external ear H61.001 and Actinic keratosis L57.[address] [address] 04/30/2024 Mónica Coburn 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 ; Actinic keratosis L57.0 ; Prediabetes R73.03 ; Spinal stenosis, 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 ; Essential (primary) hypertension I10 ; Primary osteoarthritis of left knee M17.12 and Encounter for preoperative assessment Z01.[address] [address] 05/12/2024 Mónica Coburn 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 ; Pain in left knee M25.562 and Spinal stenosis, site unspecified M48.[address] [address] 06/08/2024 Ingrid Garcia R23.4 [address] [place] [place] [address] 04/03/2024 Provider Migration [address] [place] [address] 04/04/2024 Provider Migration [address] [address] 05/17/2024 [facility] Polyneuropathy, unspecified G62.9 Assessments Encounter Date Diagnosis (ICD Code) Assessment Notes Treatment Notes Treatment Clinical Notes 07/30/2023 Pain in left knee (ICD-10 - [...] helicis of right ear (ICD-10 - H61.001) 06/08/2024 Scab (ICD-10 - R23.4) - The ear sore does not appear to be infected and is dry, which is a positive sign. It is not expected to interfere with the upcoming knee surgery. -Will check it again at upcoming pre-op surgery 05/17/2024 Polyneuropathy, unspecified (ICD-10 - G62.9) 05/12/2024 [...] Treatment Next Appt Details Provider Name:Ingrid gurrola, 06/24/2024 01:45:00 PM, [address] [facility] [facility], [place], [address], [phone] Provider Name:Mónica Coburn , 09/16/2024 01:30:00 PM, [address] [facility], [place], [address], [phone] Insurance Providers Payer Name Payer Address Payer Phone Subscriber Number Group Number Insured Name Patient Relationship to Insured Coverage Start Date Coverage End Date NGS Medicare RHC [address] [place] [phone] [id number] SaraiLeanna menodza Self - patient is the insured 2 [facility] [place] [address] [id number] Plan G Leanna Barnard Self - patient [...]
--- OUTSIDE RECORDS SUMMARY | 2024-06-21 12:05 | XMS_ITS ---
Author Organization [facility] dicine Address [address] [place] [address] Care Team Providers Care Electric Motor Tester Assembler Name Role Phone Mónica Coburn Primary Care Provider [phone] REASON FOR VISIT REfill-Controlled Medications Medication SIG (Take, Route, Fr equency, Duration) Notes Start Date End Date Status Pregabalin 150 MG 1 Oral at bed time; Duration: 90 days 05/17/2024 11/13/2024 Active Encounters Encounter Location Date Provider Diagnosis [address] [address] 05/17/2024 Mónica Coburn Polyneuropathy, unspecified G62.9 Assessments Encounter Date Diagnosis (ICD Code) Assessment Notes Treat ment Notes Treatment Clinical Notes 05/17/2024 Polyneuropathy, unspecified (ICD-10 - G62.9) Plan Of Treatment Medication Medication Name Sig Start Date Stop Date Notes Pregabalin 150 MG 1 Oral at bed time; Duration: 90 days 11/13/2024 Next Appt Details Provider Name:Ingrid gurrola, 06/24/2024 01:45:00 PM, [address] [place] [address], [address], [phone] Provider Name:Mónica Coburn , 09/16/2024 01:30:00 PM, [address] [place] [address], [address], [phone] Progress Notes * Elizabeth VIEIRAOB:1935 (88 yo F)Acc No.[id number]:05/17/2024 Patient: Slim Leanna OCHOA :1935 A ge:88 Y S ex:Female Phone: Address:[address] [place] [address] * Refills Refill Pregabalin Capsule, 150 MG, Oral, 90 Capsule, 1, at bed time, 90 days, Refills=1 Subjective: * Chief Complaints: * R Efill-Controlled * Medical History: * Surgical History: * Hospitalization/Major Diagno stic Procedure: * Medications: Objective: * Physical Examination: Assessment: * Assessment: 1. 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
--- OUTSIDE RECORDS SUMMARY | 2024-06-21 12:05 | XMS_ITS | Encounter Summary ---
Author Organization [employer] Address 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
--- OUTSIDE RECORDS SUMMARY | 2024-06-21 12:05 | XMS_ITS ---
Author Organization [facility] Address [address] [place] [address] Care Team Providers Care Milieu Technician Name Role Phone Mónica Coburn Primary Care Provider [phone] Ingrid Kowalski Unavailable [phone] Allergies Allergen (clinical drug ingredient) Drug/Non Drug Allergy documented on EMR Reaction Allergy Type Onset Date Status sulfamethoxazole / trimethoprim Bactrim nausea Drug Allergy 12/07/2020 Active fesoterodine Toviaz blurry vision Drug Allergy 12/10/2021 Active REASON FOR VISIT sore on right ear not getting better after cryo, cryo on 05/12. Has scabbed up twice but still red and angry. Medications Medication SIG (Take, Route, Frequency, Duration) Notes Start Date End Date Status busPIRone HCl 10 MG 0.5-1 Oral every 6-8 hours; Duration: 0 ,PRN Reason:for anxiety 10/20/2023 Not-Taking Metamucil oral; Duration: 0 *Pick strength-form from [facility] for eRX* 10/27/2020 Not-Taking Lisinopril 20 MG 1/2 Oral every day; Duration: 90 days 12/19/2023 06/15/2024 Active Pregabalin 150 MG 1 Oral at bed time; Duration: 90 days 05/17/2024 11/13/2024 Active Diclofenac Sodium 50 MG 1 tablet as needed Orally Twice a day; Duration: 30 days As needed. STOP taking 7 days prior to upcoming procedure. 05/12/2024 Active DULoxetine HCl 20 MG 1 Oral every night at bedtime; Duration: 90 02/16/2024 08/13/2024 Active Mupirocin 2 % External two times a day; Duration: 0 03/17/2024 Unknown amLODIPine Besylate 5 MG 1 Oral every day; Duration: 90 02/06/2024 08/03/2024 Unknown Multivitamin oral; Duration: 0 *Pick strength-form from [facility] for eRX* 06/16/2023 Active Tylenol 8 Hour Arthritis Pain 650 MG 2 Oral three times a day; Duration: 0 09/03/2022 Unknown Alendronate Sodium 70 MG 1 Oral once a week; Duration: 90 06/16/2023 06/09/2024 Unknown Centrum Silver oral; Duration: 0 *Pick strength-form from [facility] for eRX* 10/27/2020 Unknown Vitamin D2 oral; Duration: 0 *Pick strength-form from [facility] for eRX* 12/24/2023 Unknown Vital Signs Temperature 97.2 degrees Fahrenheit 06/08/19 25 Blood pressure systolic 138 mm Hg 06/08/19 25 Blood pressure diastolic 62 mm Hg 025 Heart Rate 73 /min 06/08/2024 Respiratory Rate 18 /min 06/08/2024 Height 64.00 in 06/08/2024 Weight 169.8 lbs 06/08/2024 BMI 29.14 kg/m2 06/08/2024 Oximetry 97 % 06/08/2024 Height-cm 162.56 cm 06/08/2024 Weight-kg 77.02 kg 06/08/2024 Encounters Encounter Location Date Provider Diagnosis [address] [address] 06/08/2024 Ingrid Kowalski Scab R23.4 Assessments Encounter Date Diagnosis (ICD Code) Assessment Notes Treatment Notes Treatment Clinical Notes 06/08/2024 Scab (ICD-10 - R23.4) - The ear sore does not appear to be infected and is dry, which is a positive sign. It is not expected to interfere with the upcoming knee surgery. -Will check it again at upcoming pre-op surgery Plan Of Treatment Treatment Notes Assessment Notes Scab - The ear sore does not appear to be infected and is dry, which is a positive sign. It is not expected to interfere with the upcoming knee surgery. -Will check it again at upcoming pre-op surgery Next Appt Details Provider Name:Ingrid gurrola, 06/24/2024 01:45:00 PM, [address], [place], [address], [phone] Provider Name:Mónica Coburn , 09/16/2024 01:30:00 PM, [address], [place], [address], [phone] History and Physical Notes * Examination Category Sub-Category Detail Notes General Examination General appearance: alert, p leasant, well-nourished and in no acute distress Head: normocephalic, atrau matic Eyes: conjunctiva clear, b oth eyes Lungs: Breathing easy, no r espiratory distress Neurologic: alert and oriented Skin: Tip of right ear has a small scab. No redness or drainage Psych: normal affect / mood Progress Notes * TERAHerbert VASQUEZGregOB:1935 (89 yo F)Acc No.[id number]:06/08/2024 Patient: Leanna Upton Provider: Slim Kowalski NP :1935 A ge:89 Y S ex:Female Date:06/08/2024 Phone: Address:[address] [place], [place] [phone] Pcp:Mónica Coburn Subjective: * Chief Complaints: * s ore on right ear not getting better after cryo, cryo on 05/12. Has scabbed up twice but still red and angry. * HPI: H PI: Has upcoming knee surgery on 06/29 I believe and she cannot have any open areas or they will not do the surgery. Pt also wants to know if her new insurance will cover the surgery. She said she called the hospital and they told her to ask our office. * ROS: S kin: Patient complains of S cab on right ear, she thinks it is getting smaller. No pain or drainage. * Medical History: Vitamin D deficiency, unspecified Major depressive disorder, single episode, mild Anxiety disorder, unspecified Polyneuropathy, unspecified Unspecified hearing loss, unspecified ear Essential (primary) hypertension Gastro-esophageal reflux disease without esophagitis Idiopathic gout, right ankle and foot Spinal stenosis, site unspecified Age-related osteoporosis without current pathological fracture Overactive bladder Cardiac murmur, unspecified Trochanteric bursitis, left hip Prediabetes * Medications: T akingDULoxetine HCl 20 MG Capsule Delayed Release Particles 1 Oral every night at bedtime , stop date 08/13/2024Multivitamin oral , Notes to Pharmacist: *Pick strength-form from [facility] for eRX*Lisinopril 20 MG Tablet 1/2 Oral every day , stop date 06/15/2024Diclofenac Sodium 50 MG Tablet Delayed Release 1 tablet as needed Orally Twice a day As needed. STOP taking 7 days prior to upcoming procedure.Pregabalin 150 MG Capsule 1 Oral at bed time , stop date 11/13/2024Taking DULoxetine HCl 20 MG Capsule Delayed Release Particles 1 Oral every night at bedtime , stop date 08/13/2024Taking Multivitamin oral , Notes to Pharmacist: *Pick strength-form from [facility] for eRX*Taking Lisinopril 20 MG Tablet 1/2 Oral every day , stop date 06/15/2024Taking Diclofenac Sodium 50 MG Tablet Delayed Release 1 tablet as needed Orally Twice a day As needed. STOP taking 7 days prior to upcoming procedure.Taking Pregabalin 150 MG Capsule 1 Oral at bed time , stop date 11/13/2024Not-TakingbusPIRone HCl 10 MG Tablet 0.5-1 Oral every 6-8 hours , Notes to Pharmacist: ,PRN Reason:for anxietyMetamucil oral , Notes to Pharmacist: *Pick strength-form from [facility] for eRX*Not-Taking busPIRone HCl 10 MG Tablet 0.5-1 Oral every 6-8 hours , Notes to Pharmacist: ,PRN Reason:for anxietyNot-Taking Metamucil oral , Notes to Pharmacist: *Pick strength-form from [facility] for eRX*UnknownVitamin D2 oral , Notes to Pharmacist: *Pick strength-form from [facility] for eRX*Centrum Silver oral , Notes to Pharmacist: *Pick strength-form from [facility] for eRX*Alendronate Sodium 70 MG Tablet 1 [...] , Notes to Pharmacist: *Pick strength-form from [facility] for eRX*Unknown Centrum Silver oral , Notes to Pharmacist: *Pick strength-form from [facility] for eRX*Unknown Alendronate Sodium 70 MG Tablet [...] reviewed and reconciled with the patient * Allergies: B actrim: nausea - Allergy - Onset Date 12/07/2020Toviaz: blurry vision - Allergy - Onset Date 12/10/2021yesAllergies Verified. Objective: * Vitals: B P: 138/62 mm Hg, HR: 73 /min, RR: 18 /min, Temp: 97.2 F, Oxygen sat %: 97 %, Ht: 64.00 in, Wt: 169.8 lbs, Wt-k.02 kg, Ht-cm: 162.56 cm, BMI: 29.14 Index, Body Surface Area: 1.86. * Examination: G eneral Examination: General appearance: a lert, pleasant, well-nourished and in no acute distress. Head: n ormocephalic, atraumatic. Eyes: c onjunctiva clear, both eyes. Skin: T ip of right ear has a small scab. No redness or drainage. Lungs: B reathing easy, no respiratory distress. Neurologic: a lert and oriented. Psych: n ormal affect / mood. Assessment: * Assessment: 1. S cab - R23.4 (Primary) Plan: * Treatment: Billing Information: * Visit Code: 47574 OFFICE VISIT LOW. * Procedure Codes: * OGRAPHY TECHNOLOGIST Sign off status: Completed true * Provider: Slim Kowalski NP Date: 06/08/2024 Generated for Delvis dawn/Taylor/Claritza on: 06/21/2024 12:05 PM ANGIOGRAPHY TECHNOLOGIST
--- OUTSIDE RECORDS SUMMARY | 2024-06-21 12:05 | XMS_ITS | Encounter Summary ---
Author Organization [employer] Address 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
--- OUTSIDE RECORDS SUMMARY | 2024-06-21 12:05 | XMS_ITS ---
Author Organization [facility] Address [address] [place] [address] Care Team Providers Care Brand Marketing Manager Name Role Phone Mónica Coburn Primary Care Provider [phone] REASON FOR VISIT Cryo on right ear [...] 1 Oral every night at bedtime; Duration: 02/16/2024 08/13/2024 Active Lisinopril 20 MG 1/2 Oral every day; Duration: 90 days 12/19/2023 06/15/2024 Active Multivitamin oral; Duration: 0 *Pick strength-form from [facility] for eRX* 06/16/2023 Active busPIRone HCl 10 [...] 05/12/2024 Encounters Encounter Location Date Provider Diagnosis [address] [address] 05/12/2024 [facility] 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 Next Appt Details Provider Name:Ingrid gurrola, 06/24/2024 01:45:00 PM, [address], [place], [address], [phone] Provider Name:Mónica Coburn , 09/16/2024 01:30:00 PM, [address], [place], [address], [phone] History and Physical Notes * Examination Category [...] is clear and coherent Progress Notes * Herbert VIEIRAGregOB:1935 (88 yo F)Acc No.[id number]:05/12/2024 Progress Note Patient: Leanna Upton Provider: Mylene Coburn MD :1935 A ge:88 Y S ex:Female Date:05/12/2024 Phone: Address:[address] [place], [place] [phone] Subjective: * Chief Complaints: * C nirali on right ear x 2 * HPI: H PI: Patient is here for cryo of the right [...] given from ortho some time ago. * Medications: T akingPregabalin 150 MG Capsule 1 Oral at bed time , stop date 01/12/2025DULoxetine HCl 20 MG Capsule Delayed Release Particles 1 Oral every night at bedtime , stop date 08/13/2024Multivitamin oral , Notes to Pharmacist: *Pick strength-form from [facility] for eRX*Lisinopril 20 MG Tablet 1/2 Oral every day , stop date 06/15/2024Taking Pregabalin 150 MG Capsule 1 Oral at bed time , stop date 05/16/2024Taking DULoxetine HCl 20 MG Capsule Delayed Release Particles 1 Oral every night at bedtime , stop date 08/13/2024Taking Multivitamin oral , Notes to Pharmacist: *Pick strength-form from [facility] for eRX*Taking Lisinopril 20 MG Tablet 1/2 Oral every day , stop date 06/15/2024Not-TakingbusPIRone HCl 10 MG Tablet 0.5-1 Oral every 6-8 hours , Notes to Pharmacist: ,PRN Reason:for anxietyMetamucil oral , Notes to Pharmacist: *Pick strength-form from [facility] for eRX*Not-Taking busPIRone HCl 10 MG Tablet 0.5-1 Oral every 6-8 hours , Notes to Pharmacist: ,PRN Reason:for anxietyNot-Taking Metamucil oral , Notes to Pharmacist: *Pick strength-form from [facility] for eRX*DiscontinuedMeloxicam 7.5 MG Tablet 1 Oral every day Discontinued Meloxicam 7.5 MG Tablet 1 Oral every day UnknownVitamin D2 oral , Notes to Pharmacist: *Pick strength-form from [facility] for eRX*Centrum Silver oral , Notes to Pharmacist: *Pick strength-form from [facility] for eRX*Alendronate Sodium 70 MG Tablet 1 [...] to Pharmacist: *Pick strength-form from [facility] for eRX*Unknown Centrum Silver oral , Notes to Pharmacist: *Pick strength-form from [facility] for eRX*Unknown Alendronate Sodium 70 MG Tablet 1 Oral once a week , stop date 06/09/2024Unknown amLODIPine Besylate 5 MG Tablet 1 Oral every day , stop date 08/03/2024Unknown Mupirocin 2 % Ointment External two times a day Unknown Tylenol 8 Hour Arthritis Pain 650 MG Tablet Extended Release 2 Oral three times a day Objective: * Vitals: B P:124/68mm Hg, HR:78/min, Temp:97.0F, Oxygen sat %:97%, Ht: 64.00 in, Wt:166lbs, Wt-k.3 kg, Ht-cm: 162.56 cm, BMI: 28.49 Index, Body Surface Area: 1.84. * Examination: G eneral Examination: General appearance: a lert, pleasant, well-nourished and in no acute distress. Ears: r ight ear externally with 3 mm scaly skin lesion, base with redness.. Heart: r egular rate and rhythm without murmurs, gallops, clicks or rubs, S1 and S2 are normal and no S3 and S4 gallop. Lungs: c lear to auscultation bilaterally, with good air movement and no rales, rhonchi or wheezes. Psych: a lert and oriented x 3, cognitive function intact, maintains good eye contact, normal affect / mood, speech is clear and coherent. ? Assessment: * Assessment: 1. 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 S tami stenosis, site unspecified - M48.00 S pecify :Src Problem: Spinal stenosis Plan: * Treatment: * Procedures: I nformed Consent was obtained before the procedure started Lesion type: Other Location of : right external ear Number of lesions: 1 The lesions were destroyed using cryotherapy with [employer]. 10 seconds Freeze and Thaw cycle performed. 3 rounds performed to each lesion. Anticipatory guidance was provided. Return precautions were given. Standard post procedure care was explained. The patient tolerated the procedure well without any complications. * Procedure Codes: 1 7110 DESTRUCT B9 LESION 1-14 Billing Information: * Visit Code: 59032 OFFICE VISIT LOW. Modifiers: 25 * Procedure Codes: 10808 DESTRUCT B9 LESION 1-14. * [employer] Sign off status: Completed true * Provider: Mylene Coburn MD Date: 0 05/12/2024 Generated for Delvis dawn/Taylor/Claritza on: 0 06/21/2024 12:05 PM INS[employer]
--- OUTSIDE RECORDS SUMMARY | 2024-06-21 12:05 | XMS_ITS | Encounter Summary ---
Author Organization [employer] Address 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
--- OUTSIDE RECORDS SUMMARY | 2024-06-21 12:05 | XMS_ITS | Clinical Summary ---
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
--- OUTSIDE RECORDS SUMMARY | 2024-06-21 12:06 | XMS_ITS | Clinical Summary ---
Author Organization [facility] Address [address] [place] [address] Care Team Providers Care Consumer Sales Representative Name Role Phone Mónica Coburn MD Primary [...] 02/10/2014 Overview (07/07/2018): Date Onset: 02/10/2014 Other terminal carman (current) drug therapy 4 Overview (08/26/2018): Date [...] 80 08/08/2021 6:32 PM CDT Temperature 36.8 C (98.2 F) 08/08/2021 6:32 PM CDT Respiratory Rate 18 08/08/2021 6:32 PM CDT [...] 75+ series) 2010 COVID-19 Vaccine (1 - season) 2024 Influenza Adult (#1) 2024 02/22/2019, [...] complete this topic Insurance MEDICARE [facility] GENER[facility] - COMMERCIAL Advance Directives Documents on File Type Date Recorded Patient Grain Handler Expl anation Advance Directives and Living Will [...] 12/28/2012 12:00 AM ADVANCED DIRECTIVES Care Teams Consumer Sales Representative Relationship Specialty Start Date End Date Mónica Coburn MD [address] [place] [address] PCP - General FAMILY PRACTICE 07/06/21
== END 2024-06-21 09:16 | disposition home or self-care (01) ==
LOC: ANHSURGERY 09:24
PROVIDERS: PCP Family Medicine; Visit Provider Orthopaedic Surgery
DX: Z01.818 Encounter for other preprocedural examination (principal); M17.12 Unilateral primary osteoarthritis, left knee
CPT/HCPCS: 36415; 86850; 86900; 86901

== ENCOUNTER 2024-06-29 00:31 | Day surgery (SDC) | payer MEDICARE, OTHER, SELFPAY ==
[2024-06-02 10:22] VITALS: BP 115/80; PULSE 62; RESP 16; TEMP 36.4; O2SAT 99; BMI 28.1
--- NOTE | 2024-06-02 10:47 | PC.NURSE ---
Report to the Outpatient Waiting Room, entrance under the green pavilion located off [facility], at time ___6:00AM____ on date __06/29/24 . Planned Procedure Time: ___7:30AM .? Time changes happen often and if your time is changed the preop area will call you the afternoon before. - You and your visitor will be asked to self-screen and do not enter if you have any COVID symptoms. Please call surgeon if you need to reschedule. - A mask is optional within the hospital at this time. Patients may have clear liquids (water, carbonated beverages, clear teas, apple juice) until 3 hours prior to surgery (4:30AM) with a maximum of 20 ounces. - No food from midnight until time of surgery and no smoking. This includes no chewing gum, candy or mints. Take only the following medications with a SIP of water on the morning of surgery: AMLODIPINE DO NOT STOP ANY OF YOUR OTHER PRESCRIPTION MEDICATIONS PRIOR TO SURGERY EXCEPT THE FOLLOWING Medications to discontinue per physician HOLD ALL VITAMINS/SUPPLEMENTS 7 DAYS PRE-OP PER DR OSBORN Date to take last dose 06/21/24 Please no make-up, nail khmer, hairspray, perfume, deodorant, or body powder the day of surgery.? No jewelry (including any body piercings) or valuables the day of surgery, leave them at home.? Please take a shower or bath the night before, or the morning of, surgery with an antibacterial soap.? Wear comfortable, loose fitting clothing.? - Jewelry must be removed prior to entering the operating room.? Rings and piercings that are not removed may be cut off. - The hospital will not accept responsibility for valuables.? - Please leave all valuables, including medications, at home the day of surgery. If you are going home after surgery, a licensed seasonal delivery driver must drive you home.? - NO public transportation without another adult if you receive anesthesia. - We recommend that an adult stay with you for 24 hours following discharge. - We also recommend that you do not drive, make important decision, drink alcoholic beverages, or take any drugs that were not prescribed by your health care provider for at least 24 hours after your discharge time. Hold all vitamins and supplements for 3 days per anesthesiologist. Follow any additional instructions given to you from your surgeon. Telephone instructions given to ____PATIENT & DAUGHTER and asked if any additional questions and then verbalized understanding. Patient advised to call surgeon office or pre surgery nurse liaison [phone] if any additional questions.
[2024-06-29] VITALS (15 sets, daily range): BP systolic 93–131; BP diastolic 46–87; PULSE 64–86; RESP 12–20; TEMP 36.3–36.7; O2SAT 90–100
--- NOTE | ~2024-06-29 | XR_ITS ---
EXAMINATION: [id number] DATE: 06/29/2024 12:55 INDICATION: Left knee arthroplasty. Postop. TECHNIQUE: 2 views of left knee were obtained. COMPARISON: None. FINDINGS: There is a total left knee arthroplasty with patellar resurfacing in near-anatomic alignmen t. No fracture. There is gas in the knee joint and soft tissues, consistent with recent surgery. IMPRESSION: 1. Total left knee arthroplasty in near-anatomic alignment. Reviewed, dictated and finalized at location A. 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
--- OUTSIDE RECORDS SUMMARY | 2024-06-29 00:34 | XMS_ITS ---
Author Organization [facility] Address [address] [place] [address] Care Team Providers Care Zinc Miner Blasting Name Role Phone Mónica Coburn Primary Care Provider [phone] Ingrid Kowalski Unavailable [phone] Allergies Allergen (clinical drug ingredient) Drug/Non Drug Allergy documented on EMR Reaction Allergy Type Onset Date Status sulfamethoxazole / trimethoprim Bactrim nausea Drug Allergy 12/07/2020 Active fesoterodine Toviaz blurry vision Drug Allergy 12/10/2021 Active REASON FOR VISIT 6 mo med check Medications Medication SIG (Take, Route, Frequency, Duration) Notes Start Date End Date Status Vitamin D2 oral; Duration: 0 *Pick strength-form from [employer] for eRX* 12/24/2023 Active Mupirocin 2 % External two times a day; Duration: 0 03/17/2024 Not-Taking Centrum Silver oral; Duration: 0 *Pick strength-form from [employer] for eRX* 10/27/2020 Active oxyBUTYnin Chloride ER 10 MG 1 tablet Orally Once a day; Duration: 30 days 06/24/2024 Active Tylenol 8 Hour Arthritis Pain 650 MG 2 Oral three times a day; Duration: 0 09/03/2022 Active Metamucil oral; Duration: 0 *Pick strength-form from [employer] for eRX* 10/27/2020 Not-Taking busPIRone HCl 10 MG 0.5-1 Oral every 6-8 hours; Duration: 0 ,PRN Reason:for anxiety 10/20/2023 Active Lisinopril 20 MG 1 tablet Orally Once a day; Duration: 90 days Active Diclofenac Sodium 50 MG 1 tablet as needed Orally Twice a day; Duration: 30 days As needed. STOP taking 7 days prior to upcoming procedure. 05/12/2024 Not-Taking amLODIPine Besylate 5 MG 1 Oral every day; Duration: 02/06/2024 08/03/2024 Active Alendronate Sodium 70 MG 1 tablet 30 minutes before the first food, beverage or medicine of the day with plain water Orally Active Multivitamin oral; Duration: 0 *Pick strength-form from [employer] for eRX* 06/16/2023 Active DULoxetine HCl 20 MG 1 Oral every night at bedtime; Duration: 02/16/2024 08/13/2024 Active Pregabalin 150 MG 1 Oral at bed time; Duration: 90 days 05/17/2024 11/13/2024 Active Vital Signs Blood pressure systolic 132 mm Hg 06/24/19 25 Blood pressure diastolic 78 mm Hg 025 Heart Rate 65 /min 06/24/2024 Respiratory Rate 18 /min 06/24/2024 Temperature 96.7 degrees Fahrenheit 06/24/19 25 Oximetry 98 % 06/24/2024 Height 64.00 in 06/24/2024 Weight 166.4 lbs 06/24/2024 Weight-kg 75.48 kg 06/24/2024 Height-cm 162.56 cm 06/24/2024 BMI 28.56 kg/m2 06/24/2024 Encounters Encounter Location Date Provider Diagnosis [address] [address] 06/24/2024 Ingrid Kowalski Essential (primary) hypertension I10 ; Age-related osteoporosis without current pathological fracture M81.0 ; Spinal stenosis, 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 ; Prediabetes R73.03 ; Major depressive disorder, single episode, mild F32.0 ; Anxiety disorder, unspecified F41.9 ; Arthritis of knee, left M17.12 and Urinary incontinence, mixed N39.46 Assessments Encounter Date Diagnosis (ICD Code) Assessment Notes Treatment Notes Treatment Clinical Notes 06/24/2024 Essential (primary) hypertension (ICD-10 - I10) BP is well controlled with lisinopril and amlodipine. 06/24/2024 Age-related osteoporosis without current pathological fracture (ICD-10 - M81.0) -Takes weekly Fosamax without any abdominal side effects 06/24/2024 Spinal stenosis, lumbar region with neurogenic claudication (ICD-10 - M48.062) -Chronic back pain. She remains very active. Pain is controlled with preagablin 06/24/2024 Prediabetes (ICD-10 - R73.03) - Last A1C was 5.5. Will continue to monitor 06/24/2024 Major depressive disorder, single episode, mild (ICD-10 - F32.0) - Increased irritability and mood changes noted over the past month or two. Related to limited mobility and long winter 06/24/2024 Anxiety disorder, unspecified (ICD-10 - F41.9) -Uses buspar as needed. 06/24/2024 Arthritis of knee, left (ICD-10 - M17.12) - Surgery scheduled for the left knee on June 29, 2024. Proceed with surgery as scheduled. 06/24/2024 Urinary incontinence, mixed (ICD-10 - N39.46) - Patient experiences both stress and urgency incontinence.- Consideration of antispasmodic medication for bladder to be tried over the weekend before surgery. Physical therapy for pelvic floor strengthening discussed as an option. Pessary device mentioned but declined by the patient.-Will start oxybutynin. Plan Of Treatment Medication Medication Name Sig Start Date Stop Date Notes oxyBUTYnin Chloride ER 10 MG 1 tablet Or ally Once a day; Duration: 30 days 06/24/2024 Treatment Notes Assessment Notes Essential (primary) hypertension BP is w ell controlled with lisinopril and amlodipine. Age-related osteoporosis wit hout current pathological fracture -Takes weekly Fosamax without any abdomi nal side effects Spinal stenosis, lumbar nika on with neurogenic claudication -Chronic back pain. She remains very active. Pain is controlled with preagablin Prediabetes - Last A1C was 5.5. Will continue to monitor Major depressive disorder, s nick episode, mild - Increased irritability and mood change s noted over the past month or two. Related to limited mobility and long winter Anxiety disorder, unspecified -Uses busp ar as needed. Arthritis of knee, left - Surgery schedu led for the left knee on June 29, 2024. Proceed with surgery as scheduled. Urinary incontinence, mixed - Patient ex periences both stress and urgency incontinence.- Consideration of antispasmodic medication for bladder to be tried over the weekend before surgery. Physical therapy for pelvic floor strengthening discussed as an option. Pessary device mentioned but declined by the patient.-Will start oxybutynin. Next Appt Details Provider Name:Mónica Coburn , 09/16/2024 01:30:00 PM, [address], [place], [address], [phone] History and Physical Notes * Examination Category Sub-Category Detail Notes General Examination General appearance: alert, p leasant, well-nourished and in no acute distress Head: normocephalic, atrau matic Eyes: extraocular movement intact (EOMI), pupils equal, round, reactive to light and accommodation Ears: both ears, normal Nose: nares patent, no les ions Throat: [...] good skin turgor and normal hair distribution Extremities: normal extremity wit h no clubbing, cyanosis or edema Musculoskeletal: Normal bulk and tone in extremities Lymph nodes: no cervical lymphade nopathy Psych: alert and oriented x 3, cognitive function intact, maintains good eye contact, normal affect / mood, speech is clear and coherent Oral cavity: normal, mucosa moist , tongue is midline Progress Notes * Herbert VIEIRAenDOB:1935 (89 yo F)Acc No.[id number]:06/24/2024 Patient: Leanna Upton Provider: Slim Kowalski NP :1935 A ge:89 Y S ex:Female Date:06/24/2024 Phone: Address:[address] [place], [place] [phone] Pcp:Mónica Coburn Subjective: * Chief Complaints: * 6 mo med check * HPI: H ypertension: Patient is here for 6 mo med check. Continues on amlodipine and lisinopril. Denies cardiac symptoms. No concerns. D epression: Here for med check. Continues on buspar. Pt has not been taking buspar, says she should start again, because she has a knee replacement friday. H PI: Leanna Vieira is preparing for surgery on her left knee scheduled for the upcoming Friday. She reports no recent illnesses, fever, or chills, and her appetite is good. She has no concerns about her vision. However, she experiences some breathing and cardiac concerns when climbing steps. Occasionally, she has heartburn but no changes in bowel habits. She describes back pain that worsens with activity, such as vacuuming or dust mopping, but no numbness, tingling, or significant weakness. She has noticed mood changes, feeling crabby over the past month or two, which she attributes to the winter season and her active lifestyle being restricted. She is concerned about her mobility post-surgery and the potential impact on her active lifestyle. She is taking pregabalin for pain management but has not been using buspirone for anxiety, though she is considering starting it. Leanna experiences urinary urgency and incontinence, going through many pads daily. Leanna experiences both stress and urgency incontinence and has dry eyes, which she associates with medication side effects. * ROS: G eneral / Constitutional: Patient denies c hange in appetite, fever, weakness. P atient complains of f ever, headache. F ever D enies. O phthalmologic: Patient denies b lurry vision, discharge, red eye(s). P atient complains of d ouble vision. R espiratory: Patient denies c hronic cough, shortness of breath, sputum production. C ardiovascular: Patient denies c hest pain, chest pain with exertion, irregular heartbeat. G astrointestinal: Patient denies a bdominal pain, diarrhea, rectal bleeding.? H ematology: Patient denies e asy bleeding, easy bruising, recent transfusion. G enitourinary: Frequent urination F requent urinarion. M usculoskeletal: Arthritis / arthralgia L eft knee replacement is set for 06/29/24. B ack pain C hronic lower back pain into hip. No numbness or tingling or weakness.? S kin: Patient denies b listering of skin, changing moles, skin lesion(s). N eurologic: Patient denies d izziness, gait abnormality, headache. P sychiatric: Patient denies d elusions, depressed mood, difficulty sleeping. * Medical History: Vitamin D deficiency, unspecified Major depressive disorder, single episode, mild Anxiety disorder, unspecified Polyneuropathy, unspecified Unspecified hearing loss, unspecified ear Essential (primary) hypertension Gastro-esophageal reflux disease without esophagitis Idiopathic gout, right ankle and foot Spinal stenosis, site unspecified Age-related osteoporosis without current pathological fracture Overactive bladder Cardiac murmur, unspecified Trochanteric bursitis, left hip Prediabetes Nontoxic multinodular goiter Actinic keratosis Low back pain Do not resuscitate Asymptomatic menopausal state * Surgical History: cholecystecomy ankle surgery back surgery Carpal tunnel surgery ,notes : [address] Smith Hysterectomy _ Colon Resection 2 Arthroscopy ,notes : Dr Adames - Left knee, partial medial and lateral meniscectomies. 10/27/2023 * Medications: T akingAlendronate Sodium 70 MG Tablet 1 tablet 30 minutes before the first food, beverage or medicine of the day with plain water Orally DULoxetine HCl 20 MG Capsule Delayed Release Particles 1 Oral every night at bedtime , stop date 08/13/2024Multivitamin oral , Notes to Pharmacist: *Pick strength-form from [employer] for eRX*Pregabalin 150 MG Capsule 1 Oral at bed time , stop date 11/13/2024Lisinopril 20 MG Tablet 1 tablet Orally Once a day busPIRone HCl 10 MG Tablet 0.5-1 Oral every 6-8 hours , Notes to Pharmacist: ,PRN Reason:for anxietyamLODIPine Besylate 5 MG Tablet 1 Oral every day , stop date 08/03/2024Vitamin D2 oral , Notes to Pharmacist: *Pick strength-form from [employer] for eRX*Centrum Silver oral , Notes to Pharmacist: *Pick strength-form from [employer] for eRX*Tylenol 8 Hour Arthritis Pain 650 MG Tablet Extended Release 2 Oral three times a day Taking Alendronate Sodium 70 MG Tablet 1 tablet 30 minutes before the first food, beverage or medicine of the day with plain water Orally Taking DULoxetine HCl 20 MG Capsule Delayed Release Particles 1 Oral every night at bedtime , stop date 08/13/2024Taking Multivitamin oral , Notes to Pharmacist: *[facility]*Taking Pregabalin 150 MG Capsule 1 Oral at bed time , stop date 11/13/2024Taking Lisinopril 20 MG Tablet 1 tablet Orally Once a day Taking busPIRone HCl 10 MG Tablet 0.5-1 Oral every 6-8 hours , Notes to Pharmacist: ,PRN Reason:for anxietyTaking amLODIPine Besylate 5 MG Tablet 1 Oral every day , stop date 08/03/2024Taking Vitamin D2 oral , Notes to Pharmacist: *[facility]*Taking Centrum Silver oral , Notes to Pharmacist: *[facility]*Taking Tylenol 8 Hour Arthritis Pain 650 MG Tablet Extended Release 2 Oral three times a day Not- TakingDiclofenac Sodium 50 MG Tablet Delayed Release 1 tablet as needed Orally Twice a day As needed. STOP taking 7 days prior to upcoming procedure.Metamucil oral , Notes to Pharmacist: *[facility]*Mupirocin 2 % Ointment External two times a day Medication List reviewed and reconciled with the patientNot-Taking Diclofenac Sodium 50 MG Tablet Delayed Release 1 tablet as needed Orally Twice a day As needed. STOP taking 7 days prior to upcoming procedure.Not-Taking Metamucil oral , Notes to Pharmacist: *[facility] from [facility]*Not-Taking Mupirocin 2 % Ointment External two times a day Medication List reviewed and reconciled with the patient * Allergies: B actrim: nausea - Allergy - Onset Date 12/07/2020Toviaz: blurry vision - Allergy - Onset Date 12/10/2021yesAllergies Verified. Objective: * Vitals: B P: 132/78 mm Hg, HR: 65 /min, RR: 18 /min, Temp: 96.7 F, Oxygen sat %: 98 %, Ht: 64.00 in, Wt: 166.4 lbs, Wt-k.48 kg, Ht-cm: 162.56 cm, BMI: 28.56 Index, Body Surface Area: 1.84. * Examination: G eneral Examination: General appearance: a lert, pleasant, well-nourished and in no acute distress. Head: n ormocephalic, atraumatic. Eyes: e xtraocular movement intact (EOMI), pupils equal, round, reactive to light and accommodation. Ears: b oth ears, normal. Nose: n michael patent, no lesions. Oral cavity: n ormal, mucosa moist, tongue is midline. Throat: c lear, no erythema, no exudate, pharynx normal.? Neck / thyroid: n amrita is supple with no cervical lymphadenopathy, trachea midline. Lymph nodes: n o cervical lymphadenopathy. Skin: s kin is warm and dry, with no rashes, good skin turgor and normal hair distribution. Heart: r egular rate and rhythm without murmurs, gallops, clicks or rubs, S1 and S2 are normal and no S3 and S4 gallop. Lungs: c lear to auscultation bilaterally, with good air movement and no rales, rhonchi or wheezes. Abdomen: s oft with good bowel sounds, nontender, and no masses or hepatosplenomegaly. Musculoskeletal: N ormal bulk and tone in extremities. Extremities: n ormal extremity with no clubbing, cyanosis or edema. Neurologic: a lert and oriented, deep tendon reflexes 2+ symmetrical, gait normal. Psych: a lert and oriented x 3, cognitive function intact, maintains good eye contact, normal affect / mood, speech is clear and coherent. ? Assessment: * Assessment: 1. E ssential (primary) hypertension - I10 (Primary) 2 . A ge-related osteoporosis without current pathological fracture - M81.0 S pecify :Src Problem: Osteoporosis 3 . S tami stenosis, lumbar region with neurogenic claudication - M48.062? Specify :Src Problem: Spinal stenosis of lumbar region with neurogenic claudication 4 . P rediabetes - R73.03 5 . M ajor depressive disorder, single episode, mild - F32.0 S pecify :Src Problem: Current mild episode of major depressive disorder without prior episode 6 . A nxiety disorder, unspecified - F41.9 S pecify :Src Problem: Anxiety 7 . A rthritis of knee, left - M17.12 8 . U rinary incontinence, mixed - N39.46 Plan: * Treatment: 2. A ge-related osteoporosis without current pathological fracture Notes: -Takes weekly Fosamax without any abdominal side effects 3. S tami stenosis, lumbar region with neurogenic claudication Notes: -Chronic back pain. She remains very active. Pain is controlled with preagablin 4. P rediabetes Notes: - Last A1C was 5.5. W ill continue to monitor 5. M ajor depressive disorder, single episode, mild Notes: - Increased irritability and mood changes noted over the past month or two. Related to limited mobility and long winter 6. A nxiety disorder, unspecified Notes: -Uses buspar as needed. 7. A rthritis of knee, left Notes: - Surgery scheduled for the left knee on June 29, 2024. Proceed with surgery as scheduled. 8. U rinary incontinence, mixed Start oxyBUTYnin Chloride ER Tablet Extended Release 24 Hour, 10 MG, 1 tablet, Orally, Once a day, 30 days, 30, Refills 5. Notes: - Patient experiences both stress and urgency incontinence.- Consideration of antispasmodic medication for bladder to be tried over the weekend before surgery. Physical therapy for pelvic floor strengthening discussed as an option. Pessary device mentioned but declined by the patient.-Will start oxybutynin. * Procedure Codes: G 2211 G 2211 Complexity Add-On Billing Information: * Visit Code: 80648 OFFICE VISIT MODERATE. * Procedure Codes: G2211 G 2211 Complexity Add-On. * EYOR BELT REPAIRER Sign off status: Completed true * Provider: Slim Kowalski NP Date: 0 06/24/2024 Generated for Delvis dawn/Taylor/Claritza on: 0 06/29/2024 12:34 AM CONVEYOR BELT REPAIRER
--- OUTSIDE RECORDS SUMMARY | 2024-06-29 00:34 | XMS_ITS ---
Author Organization [facility] dicine Address [address] [place] [phone] Care Team Providers Care Machine Pan Greaser Name Role Phone Mónica Coburn Primary Care Provider [phone] REASON FOR VISIT REfill-Controlled Medications Medication SIG (Take, Route, Fr equency, Duration) Notes Start Date End Date Status Pregabalin 150 MG 1 Oral at bed time; Duration: 90 days 05/17/2024 11/13/2024 Active Encounters Encounter Location Date Provider Diagnosis [address] [address] 05/17/2024 Mónica Coburn Polyneuropathy, unspecified G62.9 Assessments Encounter Date Diagnosis (ICD Code) Assessment Notes Treat ment Notes Treatment Clinical Notes 05/17/2024 Polyneuropathy, unspecified (ICD-10 - G62.9) Plan Of Treatment Medication Medication Name Sig Start Date Stop Date Notes Pregabalin 150 MG 1 Oral at bed time; Duration: 90 days 11/13/2024 Next Appt Details Provider Name:Mónica Coburn , 09/16/2024 01:30:00 PM, [address] [place] [address], [phone], [phone] Progress Notes * Elizabeth VIEIRAOB:1935 (88 yo F)Acc No.[id number]:05/17/2024 Patient: Leanna HAYWOOD :1935 A ge:88 Y S ex:Female Phone: Address:[address] [place] [address], [phone] * Refills Refill Pregabalin Capsule, 150 MG, [...] * true * Date: Generated for Delvis dawn/Taylor/Andreinasmitting on: 0 06/29/2024 12:34 AM 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
--- OUTSIDE RECORDS SUMMARY | 2024-06-29 00:34 | XMS_ITS | Encounter Summary ---
Author Organization [facility] Address 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
--- OUTSIDE RECORDS SUMMARY | 2024-06-29 00:34 | XMS_ITS | Encounter Summary ---
Author Organization [facility] Address [address] [place] [address] Care Team Providers Care Environmental Remediation Consultant Name Role Phone Unavailable Primary Care Provider Unavailabl e Encounter Details Date Type Department Care Team (Late st Contact Info) Description 07/07/1998 Outpatient Historical [facility]RON[facility] Delonte Marcelo MD [address] [place] [phone] Social History Tobacco Use Types Packs/Day Years Used Date Smoking Tobacco: Never Assessed Comments Unknown Sex and Gender Information Value Date Recorded Sex Assigned at Not on file Legal Sex Female 5:12 AM GATE SERVICES SUPERVISOR Gender Identity Not on file Sexual Orientation Not on file documented as of this encounter Plan of Treatment Not on file documented as of this encounter Visit Diagnoses Not on filedocumented in this encounter
--- OUTSIDE RECORDS SUMMARY | 2024-06-29 00:34 | XMS_ITS | Encounter Summary ---
Author Organization [facility] Address [address] [place] [address] Care Team Providers Care Cage Clerk Name Role Phone Unavailable Primary Care Provider Unavailabl e Encounter Details Date Type Department Care Team (Latest Contact Info) Description 03/23/1998 Outpatient Historical [facility]RON[facility] Duncan Hazel, DO [address] [place] [id number] Pain in limb (Primary Dx) Social History Tobacco Use Types Packs/Day Years Used Date Smoking Tobacco: Never Assessed Comments Unknown Sex and Gender Information Value Date Recorded Sex Assigned at Not on file Legal Sex Female 5:12 AM STATION EXAMINER Gender Identity Not on file Sexual Orientation Not on file documented as of this encounter Plan of Treatment Not on file documented as of this encounter Visit Diagnoses Diagnosis Pain in limb- Primary documented in this encounter
--- OUTSIDE RECORDS SUMMARY | 2024-06-29 00:34 | XMS_ITS | Clinical Summary ---
Author Organization [employer] 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
--- OUTSIDE RECORDS SUMMARY | 2024-06-29 00:35 | XMS_ITS ---
Author Organization [facility] Address [address] [place] [address] Care Team Providers Care Senior Qualitative Researcher Name Role Phone Mónica Coburn Primary Care Provider [phone] Ingrid Kowalski Unavailable [phone] Allergies Allergen (clinical drug ingredient) Drug/Non Drug [...] Metamucil oral; Duration: 0 *Pick strength-form from [facility] for eRX* 10/27/2020 Not-Taking Lisinopril 20 MG [...] Multivitamin oral; Duration: 0 *Pick strength-form from [employer] for eRX* 06/16/2023 Active Tylenol 8 Hour Arthritis Pain 650 MG 2 Oral three times a day; Duration: 0 09/03/2022 Unknown Alendronate Sodium 70 MG 1 Oral once a week; Duration: 90 06/16/2023 06/09/2024 Unknown Centrum Silver oral; Duration: 0 *Pick strength-form from [employer] for eRX* 10/27/2020 Unknown Vitamin D2 oral; Duration: 0 *Pick strength-form from [employer] for eRX* 12/24/2023 Unknown Vital Signs Blood pressure systolic 138 mm Hg 06/08/19 25 Blood pressure diastolic 62 mm Hg 025 Heart Rate 73 /min 06/08/2024 Respiratory Rate 18 /min 06/08/2024 Temperature 97.2 degrees Fahrenheit 06/08/19 25 Oximetry 97 % 06/08/2024 Height 64.00 in 06/08/2024 Weight 169.8 lbs 06/08/2024 Weight-kg 77.02 kg 06/08/2024 Height-cm 162.56 cm 06/08/2024 BMI 29.14 kg/m2 06/08/2024 Encounters Encounter Location Date Provider Diagnosis [address] [address] 06/08/2024 Ingrid Kowalski Scab R23.4 Assessments Encounter [...] upcoming pre-op surgery Next Appt Details Provider Name:Mónica Coburn , 09/16/2024 01:30:00 PM, [address], [place], [address], [phone] History and Physical Notes * Examination Category [...] normal affect / mood Progress Notes * Herbert VIEIRAenDOB:1935 (89 yo F)Acc No.[id number]:06/08/2024 Patient: Leanna Upton Provider: Slim Kowalski NP :1935 A ge:89 Y S ex:Female Date:06/08/2024 Phone: Address:[address] [place], [place] [id number] Pcp:Mónica Coburn Subjective: * Chief Complaints: * [...] , Notes to Pharmacist: *Pick strength-form from [employer] for eRX*Lisinopril 20 MG Tablet 1/2 Oral [...] , Notes to Pharmacist: *Pick strength-form from [facility] for eRX*Taking Lisinopril 20 MG Tablet 1/2 [...] , Notes to Pharmacist: *Pick strength-form from [facility] for eRX*Not-Taking busPIRone HCl 10 MG Tablet 0.5-1 Oral every 6-8 hours , Notes to Pharmacist: ,PRN Reason:for anxietyNot-Taking Metamucil oral , Notes to Pharmacist: *Pick strength-form from [facility] for eRX*UnknownVitamin D2 oral , Notes to Pharmacist: *Pick strength-form from [facility] for eRX*Centrum Silver oral , Notes to Pharmacist: *Pick strength-form from [facility] for eRX*Alendronate Sodium 70 MG Tablet 1 [...] , Notes to Pharmacist: *Pick strength-form from [facility] for eRX*Unknown Centrum Silver oral , Notes to Pharmacist: *Pick strength-form from [facility] for eRX*Unknown Alendronate Sodium 70 [...] / mood. Assessment: * Assessment: 1. S [facility] - R23.4 (Primary) Plan: * Treatment: Billing Information: * Visit Code: 40057 OFFICE VISIT LOW. * Procedure Codes: * NDED DUTY DENTAL ASSISTANT Sign off status: Completed true * Provider: Slim Kowalski NP Date: 0 06/08/2024 Generated for Delvis dawn/Taylor/Claritza on: 06/29/2024 12:34 AM EXPANDED DUTY DENTAL ASSISTANT
--- OUTSIDE RECORDS SUMMARY | 2024-06-29 00:35 | XMS_ITS | Clinical Summary ---
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
[2024-06-29] MEDS: TRANEXAMIC ACID 1,000MG/ISO100 1,000 MG/100 ML BAG 200 MG IVPB (09:20)
[2024-06-29] MEDS: ACETAMINOPHEN 500 MG TABLET 1000 MG PO (09:20)
[2024-06-29] MEDS: LACTATED RINGERS 1,000 ML 30 ML IV CONT ×2 (09:20→12:34)
--- NOTE | 2024-06-29 09:40 | WPDHPUPDATE1 ---
History and Physical Update Update Date/Time: 06/29/24 09:40 History and Physical has been reviewed, including an updated exam of the patient. There are NO changes in the patient's condition. Risks, benefits, and alternatives have been discussed and questions answered. Patient agrees to proceed with procedure.
--- NOTE | 2024-06-29 09:57 | WPDANESEPPF ---
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 Patient Data Age: 89 Gender: F Height: 1.64 m Weight: 73.4 kg Last Vital Signs Temp 36.4 C 06/29/24 09:20 Pulse 64 06/29/24 09:20 Resp 14 06/29/24 09:20 BP 106/87 06/29/24 09:20 Pulse Ox 95 06/29/24 09:20 O2 Del Method Room Air 06/29/24 09:20 Allergies Allergy/AdvReac Type Severity Reaction Status Date / Time fesoterodine (From Toviaz) AdvReac Intermediate Blurry Verified 06/29/24 09:48 Vision sulfamethoxazole (From AdvReac Intermediate Nausea Verified 06/29/24 09:48 Bactrim) trimethoprim (From Bactrim) AdvReac Intermediate Nausea Verified 06/29/24 09:48 Home Medications ?Medication ?Instructions ?Recorded ?Confirmed ?Type amlodipine 5 mg tablet 5 mg PO DAILY 09/13/19 06/29/24 History lisinopril 20 mg tablet 20 mg PO DAILY 09/13/19 06/29/24 History pantoprazole 40 mg tablet,delayed 40 mg PO PRN PRN Heartburn 09/13/19 06/29/24 History release acetaminophen 650 mg 1,300 mg PO Q8H PRN pain 08/19/23 06/02/24 History tablet,extended release (Tylenol Arthritis Pain) alendronate 70 mg tablet 70 mg PO WEEKLY 08/19/23 06/29/24 History duloxetine 20 mg capsule,delayed 20 mg PO HS 08/19/23 06/29/24 History release pregabalin 150 mg capsule 150 mg PO BID PRN pain 08/19/23 06/29/24 History ipratropium bromide 21 mcg (0.03 2 spray intranasal BID PRN allergy 08/29/23 06/29/24 History %) nasal spray symptoms cholecalciferol (vitamin D3) 50 50 mcg PO DAILY 10/16/23 06/29/24 History mcg (2,000 unit) tablet sajjozyf-tbdi-macd 8 mg-folic 400 1 tablet PO DAILY 10/16/23 06/29/24 History mcg-K 50 mcg-lutein 300 mcg tablet (Centrum Silver Women) magnesium hydroxide 311 mg 311 mg PO DAILY 06/02/24 06/29/24 History chewable tablet tramadol 50 mg tablet 50 mg PO Q8H PRN pain 06/02/24 06/02/24 History aspirin 81 mg tablet,delayed 81 mg PO BID 14 days #28 tabs 06/29/24 Rx release meloxicam 15 mg tablet 15 mg PO DAILY #30 tabs 06/29/24 Rx oxycodone-acetaminophen 5 mg-325 1 - 2 tablet PO Q4-6H PRN pain 7 06/29/24 Rx mg tablet days #30 tabs prednisone 5 mg tablet 5 mg PO DAILY 3 weeks #21 tabs 06/29/24 Rx Patient hx anesthesia problems: none Family hx anesthesia problems: none Results Review: All pre-operative results and documents have been reviewed as part of the pre-operative evaluation. [facility] Past Medical History Medical History Tibial plateau fracture, left Vitamin D deficiency Trochanteric bursitis, left hip Spinal stenosis of lumbar region with neurogenic claudication Spinal stenosis Seborrheic keratosis Prediabetes Postmenopausal Overactive bladder Osteoporosis Neuropathy Neoplasm of uncertain behavior of skin Essential (primary) hypertension Diminished hearing Current mild episode of major depressive disorder Chronic cough Cardiac murmur Acute idiopathic gout of right ankle GERD (gastroesophageal reflux disease) Goiter, nontoxic, multinodular Hip bursitis Back complaints Surgical History Surgical History Status post lateral meniscectomy of left knee and medial Family History Family History Sibling Cerebrovascular accident Mother Family history of kidney disease Family history of heart disease in male family member before age 55 Other Diabetes mellitus Hypertension Social History Social History Smoking status: Never smoker Alcohol intake: current Do You Feel Safe in your Home?: Yes Lack of Transportation: No Lack of Food: Never True Current Housing: I Have Housing Concerned About Future Housing: No Difficulty Paying Gas/Electric Bills: No Difficulty Paying for Meds: No Currently Unemployed: No Education: Decline to Answer Difficulty w/ Childcare or Family Care: No Living arrangements: with friend(s) Additional living arrangements comments: FRIEND Spiritual care concerns: No Anes - Eval Final PreProcedure Day of Procedure 06/29/24 09:57 Patient weight: overweight Heart: regular rate and rhythm Lungs: clear to auscultation Airway: Mallampati scale class II Neurological: alert and oriented Last oral intake: >/= 8 hours ASA classification: III Emergent: no Anesthetic plan: proceed Anesthesia type and monitoring: general LMA and standard monitoring Results Review: All pre-operative results and documents have been reviewed as part of the pre-operative evaluation. Informed Consent: The patient's anesthetic plan and its attendant risks and benefits were discussed with the patient/family/POA. Questions were solicited and answers provided to the satisfaction of the patient/family/POA.
[2024-06-29] MEDS: SODIUM CHLORIDE 0.9% IV 37.7 ML, MORPHINE SULFATE INJ (*CRX) 2 MG, ROPivacaine HCL 1% 2... INFILTRATE (10:26)
[2024-06-29] MEDS: ceFAZolin 2 GM/D5W 50 ML 2 GM/50 ML BAG IVPB ×2 (10:26→17:38)
[2024-06-29] MEDS: GENTAMICIN BONE CEMENT REFOBACIN 1 EACH TOPICAL (11:47)
[2024-06-29] MEDS: TRANEXAMIC ACID 1,000 MG/10 ML AMPUL 1000 MG IV PUSH (12:05)
[2024-06-29] MEDS: fentaNYL CITRATE INJ (*CRX) 100 MCG/2 ML VIAL 25 MCG IV PUSH ×6 (12:45→13:07)
--- NOTE | 2024-06-29 13:18 | P.OP_ITS ---
Procedure Note - Detailed Date of Procedure 06/29/24 Pre-op Diagnosis Left knee degenerative arthritis. Post-op Diagnosis Same Procedure Performed Calipered, kinematically aligned total knee replacement left knee. 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 Findings According to the calipered kinematic alignment principles, the knee was balanced by the following verification checks incorporating 6 caliper measurements, using an insert goniometer to select the insert thickness, and adjusting the tibial resection following the kinematic alignment algorithm (see figure 160.10 published in [employer] chapter on kinematic alignment total knee arthroplasty.) The steps verified the femoral and tibial components were kinematically aligned coincident to the patient's pre arthritic joint lines, which closely restored the algaaciq tibial compartment forces and ligament laxities without ligament release. The [employer] knee, designed specifically for kinematic alignment, fit optimally. The record of verification checks were documented and scanned into the chart. Distal Femoral Resection: Distal Medial 6 mm(cartilage worn), Distal Lateral 8 mm Target thickness of 8mm Unworn, 6mm Worn (No Cartilage). Posterior Femoral Resection: Posterior Medial 7 mm, Posterior Lateral 6.5 mm. Target thickness of 7mm Unworn, 5mm Worn (No Cartilage). Description of Procedure General anesthesia was administered. A well-padded tourniquet was placed high on the thigh. The limb was prepped and draped in the usual sterile fashion. The limb was exsanguinated and the tourniquet inflated to 300 mmHg during exposure. A longitudinal incision was created over the midline of the knee. Sharp dissection was taken through subcutaneous tissues. Electrocautery was used for hemostasis. A trivector approach to the knee joint was performed. The ACL, anterior horns of the menisci, and fat pad were excised, and a subperiosteal dissection was carried along the posterior medial border of the tibia. The thickness of the algaaciq patella was measured with a caliper. The patella was resected using the oscillating saw. The best fitting anatomic patella button was selected. The fixation holes were drilled. When the patella and patella buttons combined thickness was thicker than the algaaciq patella, the patella was recut. Starting midway between the top of the notch in the anterior femoral cortex, I drilled a 9 mm diameter hole parallel to the anterior cortex to minimize flexion of the femoral component and promote patella tracking. I verified the existence of a 5-10 mm bone bridge between the posterior aspect of the hole and the anterior limit of the intercondylar notch. An intraosseous positioning benjamin was inserted 10 cm into the femur perpendicular to the distal joint line and parallel to the anterior cortex. I used a distal femoral referencing guide that compensated 2 mm when the cartilage was worn on the distal medial femoral condyle, and 2 mm when the cartilage was worn on the distal lateral femoral condyle. The basis for setting the distal and posterior femoral resection guide is knowing that the varus and valgus grade II to IV Kellegren-Gautam osteoarthritic knees have negligible bone wear at 0? and 90? and that the mean full-thickness cartilage wear approximates 2 mm. I measured the thickness of distal femoral resections with a caliper to +/- 0.5 mm. The thickness of each resection was adjusted to match the thickness of the respective condyle of the femoral component within 0.5 mm of target after compensating for cartilage wear and kerf. When the distal resection was 1-2 mm too thin, a recut guide was used to adjust the cut. When the distal resection was too thick, a 1 or 2 mm thick washer was fixed to the back of the 4-in-1 chamfer block to lenny a corrective gap between the femoral component and distal femur. I set posterior femoral referencing guide at 0? orientation to position the pin holes for the 4 in 1 chamfer block. The nilam wing measured the width of the distal femoral resection and selected the size of the 4 in 1 chamfer block and femoral component. The AP sizer confirmed the size. I measured the thickness of the posterior femoral resections with a caliper before making the anterior and chamfer cuts. I adjusted the thicknesses of each resection to match the thickness of the respective condyle of the femoral component within +/-0.5 mm after compensating for cartilage wear and curve. When a posterior resection femoral resection was 1-2 mm too thick or thin a corrective correction was made by shifting or rotating the 4 in 1 chamfer block as needed. The chamfer block was secured in the correct position with compression screws. The anterior and chamfer femoral resections were made. These caliper measurements and corrections verified that the femoral component was set coincident with the patient's pre-arthritic distal and posterior femoral joint lines. I removed all the medial and lateral femoral and tibial osteophytes to restore the pre arthritic length of the medial and lateral collateral ligaments. I emma AP lines along the major axis of the lateral tibial plateau in between the tibial spines which identified the flexion extension plane of the knee. A conventional extramedullary tibial resection guide was applied to the ankle. An nilam wing was placed medially in the saw slot. The varus valgus angle of the tibial resection guide was adjusted until the guide paralleled the proximal tibial articular surface after compensating for cartilage and bone wear. The slope of flexion extension angle of the tibial resection guide was adjusted until the nilam wing paralleled the slope of the medial tibia after compensating for wear. The AP axis of the tibial resection guide was adjusted parallel to the two lines. The proximal tibia was resected, partially releasing the insertion of the posterior cruciate ligament. The thickness of the medial and lateral lateral tibial condyle was measured at the base of the tibial spines. I visually verified the slope of the medial border of the resection was parallel to the patient's pre arthritic slope after compensating for cartilage and bone wear. I removed the remnants of the posterior horns of the menisci and posterior osteophytes and cauterized the inferior lateral genicular vessels. The [employer] bipolar device was also used to for additional hemostasis. When the knee had a preoperative flexion contracture of 20? or more I teased the capsule off the posterior femur with a curved 3 quarter-inch osteotome. I administered the posterior femoral periosteal injection by delivering 10 cc using a 20 gauge spinal needle at the most medial and 10 cc at the most lateral femoral spur surface which reduced the risk of injury to the posterior neurovascular structures. I followed 6 options in a decision tree to fine tune the varus valgus and posterior slope orientation of the tibial component to restore the patient's pre arthritic tibial joint line and limb alignment. First, I adjusted the varus- valgus orientation of the proximal tibia resection working in 1 degree to 2 degree increments until there was negligible medial and lateral lift off of the distal femoral and proximal tibial resection from the spacer block during a varus valgus laxity assessment in extension. I selected the largest anatomic shape trial tibial base plate that fit within the cortical boundary of the proximal tibial resection. The base plate was best fit parallel to the cortical boundary which set the Internal-external orientation of the anterior to posterior and medial to lateral positions. The best fit method set the AP axis of the tibial base plate and insert parallel to the flexion extension plane of the pre arthritic knee. I pinned the trial tibial base plate, prepared the cruciate slot, and fixed the base plate to the tibia with the cruciate stem. I inserted the trial femoral component. The knee was placed in full extension. Varus valgus laxity is of the knee with trial components were assessed. When asymmetric laxity was observed a 1-2 degree varus or valgus recut guide was used to fine tune the tibial resection until the laxity was 1 degree or less in full extension like the algaaciq knee. The following steps determined the optimal insert thickness within +/-1 mm. First I inserted an insert goniometer that matched the thickness of the spacer block. I reduced the patella and then with the knee in maximum extension, I verified the knee hyperextended a few degrees and had negligible varus valgus laxity, like the pre arthritic knee. Next, I measured the external tibial orientation which was the angle the insert goniometer intersected the sagittal line on the medial condyle of the femoral trial component. Then with the knee in 15-30 degrees flexion I verified a 3-4 mm gap in the lateral compartment and no gap in the medial compartment during a 2nd varus valgus laxity test. Next, I placed the knee in 90? of flexion and the foot resting on the operating table and measured the internal tibial orientation. I repeated the steps until I identified the insert thickness that provided the highest external tibia orientation in extension and the highest internal tibial orientation at 90? flexion without anterior lift-off of the insert from the tibial base plate. The insert with this thickness was implanted. I applied a posterior drawer test with the tibia distracted by gravity and v erified no posterior subluxation of the tibia relative to the femur. The patella remained centered on the trochlea and tracked well throughout the entire arc of flexion and extension. I used pulse lavage to clean the bony surfaces of debris and dried bone. I cemented the tibial, femoral, and patellar components using 1 bag of methylmethacrylate with Gentamycin, then rechecked the stability at full extension, 15-30 degrees, and 90? flexion and verified jainism of the entire arc of motion of the knee. The circulating nurse confirmed the sponge and needle counts were correct. I used pulse lavage to rinse the joint and wound. The extensor mechanism was closed with interrupted #1 Vicryl suture and #1 running Stratafix suture. The subcutaneous layer was closed with interrupted #1 Vicryl suture followed by 2-0 Stratafix and 3-0 Stratafix. Steri-Strips placed on the skin. Silver impregnated occlusive dressing applied to the wound. A light gauze wrap and Markie bandage were placed. The patient was transferred to the recovery room in stable condition. There were no complications. Implants [employer] GMK spheriKA Femoral component SpheriKA size 3+, tibial component size 3, vitamin-E flex insert, thickness 11mm, Anatomic patella implant size 2. Estimated Blood Loss 150 Drains No Pathology None sent Complications No immediate complications Condition Stable Disposition PACU [facility] Billing Surgery - Charge Forward: Surgery Billing
[2024-06-29] MEDS: HYDROmorphone HCL INJ (*CRX) 1 MG/ML SYR 0.25 MG IV PUSH ×4 (13:21→13:36)
[2024-06-29] MEDS: ONDANSETRON INJ 4 MG/2 ML VIAL IV PUSH (14:19)
[2024-06-29] MEDS: SODIUM CHLORIDE 0.9% IV 1,000 ML 125 ML IV CONT (14:20)
--- NOTE | 2024-06-29 14:50 | ADMGEN ---
Addendum entered by Lynette Cullen RN 06/29/24 14:50: report from elav in OR Original Note: This patient, Leanna Barnard, was admitted to 3 Med Surg Room 313-01. Patient/family oriented to hospital policies and general routines including ID bracelet, bed and alarms, visiting hours, pain management, procedures, bathroom and other care routines, personal items, smoking policy, room service/diet, and visiting hours. Information on how to activate the Rapid Response Team has been discussed. Patient/Family are encouraged to report perceived risks to care and to ask questions if they do not understand what they are told or what they should do. Report from DENIS
[2024-06-29] MEDS: CYCLOBENZAPRINE HCL 10 MG TABLET PO (15:03)
[2024-06-29] MEDS: ACETAMINOPHEN 325 MG TABLET 650 MG PO ×2 (17:41→23:36)
[2024-06-29] MEDS: SENNA/DOCUSATE SODIUM TABLET 2 TAB PO (17:42)
[2024-06-29] MEDS: MELOXICAM 7.5 MG TABLET PO (17:42)
[2024-06-29] MEDS: ASPIRIN 81 MG ENTERIC TABLET PO (17:42)
[2024-06-29] MEDS: traMADol HCL (*CRX) 50 MG TABLET PO (18:28)
[2024-06-29] MEDS: DULoxetine HCL 20 MG CAPSULE.DR PO (21:21)
[2024-06-29] MEDS: FAMOTIDINE 20 MG TABLET PO (21:21)
[2024-06-30] MEDS: ceFAZolin 2 GM/D5W 50 ML 2 GM/50 ML BAG IVPB (01:07)
[2024-06-30 03:39] VITALS: BP 96/56; PULSE 64; RESP 16; TEMP 36.9; O2SAT 93
[2024-06-30] MEDS: ACETAMINOPHEN 325 MG TABLET 650 MG PO (06:09)
[2024-06-30 07:07] LABS: Basophils Percent Auto 0.2 % (0.2-1.2); Eosinophils Percent Auto 0.4 % (0-4.4); Hematocrit 32.3 % (37.0-47.0); Hemoglobin 10.3 g/dL (12.0-15.0); Immature Granulocyte Absolute 0.05 K/mm3 (0.00-0.031); Immature Granulocyte Percent A 0.5 % (0-0.5); Lymphocytes Absolute Auto 1.48 K/mm3 (0.9-3.2); Lymphocytes Percent Auto 14.2 % (18.3-44.2); Mean Corpuscular HGB Conc 31.9 g/dl (32-36); Mean Corpuscular Hemoglobin 30.3 pg (26-34); Mean Platelet Volume 8.3 fl (7.4-10.4); Monocytes Absolute Auto 0.9 K/mm3 (0.1-0.6); Monocytes Percent Auto 8.3 % (2.6-8.5); Neutrophils Percent Auto 76.4 % (45.5-73.1); Platelet Count Result 214 k/mm3 (150-375); Red Cell Distribution Width 12.5 % (11.5-14.5); White Blood Count 10.4 K/mm3 (4.5-10.0)
[2024-06-30 07:19] LABS: Anion Gap 5 mmol/L (4-12); Blood Urea Nitrogen 19 mg/dL (7-17); Calcium 8.3 mg/dL (8.4-10.2); Carbon Dioxide 27 mmol/L (22-30); Chloride 101 mmol/L (98-107); Estimated CRCL calculation 46 ml/min; Estimated Glomerular Filt Rate > 60; Glucose 97 mg/dL (65-110); Potassium 4.6 mmol/L (3.4-5.0); Sodium 133 mmol/L (137-145)
[2024-06-30 07:39] VITALS: BP 109/54; PULSE 68; RESP 20; TEMP 36.4; O2SAT 96
[2024-06-30] MEDS: oxyCODONE/ACETAMINOPHEN (*CRX) 5-325 MG TABLET 1 TABLET PO (08:37)
[2024-06-30] MEDS: FAMOTIDINE 20 MG TABLET PO (08:38)
[2024-06-30] MEDS: ASPIRIN 81 MG ENTERIC TABLET PO (08:38)
[2024-06-30] MEDS: lisinopriL 20 MG TABLET PO (08:38)
[2024-06-30] MEDS: SENNA/DOCUSATE SODIUM TABLET 2 TAB PO (08:38)
[2024-06-30] MEDS: polyethylene glycoL 3350 17 GM POWD.PACK PO (08:38)
[2024-06-30] MEDS: amLODIPine BESYLATE 5 MG TABLET PO (08:38)
[2024-06-30] MEDS: predniSONE 5 MG TABLET PO (08:38)
[2024-06-30] MEDS: MELOXICAM 7.5 MG TABLET PO (08:40)
--- NOTE | 2024-06-30 11:12 | PCPTNOTE ---
On 06/30/24, the student, RUCHI Taylor, provided care and completed [facility] documentation on this patient. I have reviewed the student's documentation and agree with the findings.
== END 2024-06-30 11:00 | disposition home or self-care (01) ==
LOC: ANHSURGERY 09:13 → ANH3MEDSUR 13:58
PROVIDERS: Physician Assistant Surgical; PCP Family Medicine; Visit Provider Orthopaedic Surgery
PROC: (CPT 27447; principal; 2024-06-29 10:30)
DX: M17.12 Unilateral primary osteoarthritis, left knee (principal); M25.762 Osteophyte, left knee; G89.29 Other chronic pain; E55.9 Vitamin D deficiency, unspecified; R73.03 Prediabetes; M81.0 Age-related osteoporosis without current pathological fracture; I10 Essential (primary) hypertension; R01.1 Cardiac murmur, unspecified; K21.9 Gastro-esophageal reflux disease without esophagitis; M48.062 Spinal stenosis, lumbar region with neurogenic claudication; N32.81 Overactive bladder; F32.A Depression, unspecified; L82.1 Other seborrheic keratosis; G62.9 Polyneuropathy, unspecified; R05.3 Chronic cough; Z79.83 Long term (current) use of bisphosphonates; Z79.891 Long term (current) use of opiate analgesic; Z79.82 Long term (current) use of aspirin; Z79.52 Long term (current) use of systemic steroids; Z98.890 Other specified postprocedural states; Z82.49 Family history of ischemic heart disease and other diseases of the circulatory system
CPT/HCPCS: 27447; 36415; 73560; 80048; 85025; 97110; 97116; 97161; 97165; 97530; 97535; C1776; A9270; C1713; J0171; J0360; J0690; J1100; J1171; J1885; J2270; J2405; J2704; J2795; J3010; J7030; J7120; J7512

== ENCOUNTER 2024-07-19 10:19 | Outpatient (CLI) | payer MEDICARE, OTHER, SELFPAY ==
--- NOTE | ~2024-07-19 | XR_ITS ---
Left Knee Technique: AP, lateral, and oblique views were obtained. Clinical History: Arthroplasty Findings: No fracture or dislocation is seen. Left knee arthroplasty in place. No hardware complicati on is evident.. Soft tissues are unremarkable. No joint effusion is seen. Impression: No acute abnormality. Left knee arthroplasty in place. Reviewed, dictated and finalized at location . Impression: No acute abnormality. Left knee arthroplasty in place.
== END 2024-07-19 10:20 | disposition home or self-care (01) ==
PROVIDERS: PCP Family Medicine; Visit Provider Physician Assistant Surgical
DX: Z96.652 Presence of left artificial knee joint (principal)
CPT/HCPCS: 73562